=== PATIENT | female | born 1995 | race Caucasian/White ===

== ENCOUNTER 2023-01-03 15:45 | Outpatient (OUT) | payer OTHER, SELFPAY ==
--- NOTE | 2023-01-03 15:51 | US_ITS ---
[address] [address] Patient Name: TATIANA DOMINIQUE MRN: [id number] date: 1995 Sex: F Assigned Patient Location: US Current Patient Location: Accession/Order Number: [id number] Exam Date: 01/03/2023 15:52 Report Date: 01/04/2023 17:46 At the request of: ADRIA GUERRA Procedure: US OB transvaginal EXAMINATION: US OB transvaginal HISTORY: Amenorrhea N91.2 COMPARISON: No relevant comparison available. FINDINGS: [place] intrauterine gestation Gestational sac: 3.0 cm, 7 weeks 6 days CRL: 1.4 cm, 7 weeks 5 days Yolk sac: 2.3 mm Heart rate: 156 bpm The uterus is normal, anteverted The right ovary is normal measuring 3.3 x 1.1 x 1.8 cm The left ovary measures 5.2 x 3.8 x 3.2 cm. Areas of anechoic echogenicity measuring up to 2.4 cm, simple cyst / corpus luteal cyst The cervix is closed measuring 3 cm Clinical age: 8 weeks 5 days Clinical ANTOINETTE: 08/10/2023 Ultrasound age: 7 weeks 6 days Ultrasound ANTOINETTE: 08/16/2023 US/US OB transvaginal IMPRESSION: Viable [place] intrauterine gestation measuring 7 weeks 6 days Electronically authenticated by: MENDOZA EWING Date: 01/04/2023 17:46
== END 2023-01-03 15:46 | disposition home or self-care (01) ==
LOC: US 15:45
PROVIDERS: Family Provider Obstetrics & Gynecology; PCP Family Medicine; Visit Provider Midwife
DX: N91.2 Amenorrhea, unspecified (principal); Z3A.01 Less than 8 weeks gestation of pregnancy
CPT/HCPCS: 76817

== ENCOUNTER 2023-07-02 07:19 | Outpatient (OUT) | payer OTHER, SELFPAY ==
--- OUTSIDE RECORDS SUMMARY | 2023-07-02 07:23 | XMS_ITS | CCD ---
Author Organization [facility] Care Team Providers Care [employer] Associate Name Role Phone MELISSA STEVENS Unavailable Unavailable HILDA, MELISSA Unavailable Unavailable DEXTER SMITH Unavailable Unavailable HILDA, MELISSA Unavailable Unavailable FLORO, ADRIA Admitting Unavailable FLORO, ADRIA Attending Unavailable DEFRANCEMENDOZA Primary Care Unavailable FLORO, ADRIA L Attending Unavailable FLORO, ADRIA L Attending Unavailable FLORO, ADRIA L Referring Unavailable FLORO, ADRIA L Attending Unavailable FLORO, ADRIA L Attending Unavailable FLORO, ADRIA L Referring Unavailable FLORO, ADRIA L Attending Unavailable FLORO, ADRIA L Attending Unavailable FLORO, ADRIA L Referring Unavailable FLORO, ADRIA L Attending Unavailable FLORO, ADRIA L Referring Unavailable FLORO, ADRIA L Attending Unavailable FLORO, ADRIA L Referring Unavailable Problems Problem Classification Problem Date Documented Da te Episodic/Chronic Abdominal pain (4 sources) Pelvic and perineal pain; Translations: [PELVIC AND PERINEAL PAIN] Onset: 11-13-2017 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 The placenta is posterior Grade 1. Cervix closed 4.0 cm. IDALIA 14 cm. Heart rate 136. IMPRESSION: 10/10 normal biophysical profile. TRANSCRIBED BY: ELECTRONICALLY SIGNED BY: Moisés Grenewood MD Normal Not Available US BIOPHYSICAL PROFILE WO NON STRESS TESTINGon 06-21-2023 US BIOPHYSICAL PROFILE WO NON STRESS TESTING FINDINGS: Breathing Movements 2 Gross Body Movements 2 Tone 2 Qualitative amniotic fluid volume 2 A single, viable intrauterine is present. IDALIA 14 cm. Heart rate 145 bpm. Cephalic presentation. The placenta is posterior, not associated with the cervical os. Cervix is closed, 5.4 cm length IMPRESSION: Normal biophysical profile. TRANSCRIBED BY: ELECTRONICALLY SIGNED BY: Moisés Greenwood MD Normal Not Available US OB FOLLOW UP TRANSABDOMIN AL APPROACHon 06-07-2023 US OB FOLLOW UP TRANSABDOMINAL APPROACH HISTORY: Growth. Age by LMP of 30 weeks 6 days COMPARISON: 05/07/2023. TECHNIQUE: Sonography of the pelvis was performed by transabdominal technique. Images were obtained and stored in a permanent archive. RESULT: Gestation: Single present. Position: Cephalic Placenta: Location: Posterior Grade: 1 Previa: absent Cervix: Closed measuring 3.6 cm in length. Cardiac activity: 145 bpm BPD: 7.7 cm HC: 28.1 cm AC: 26.6 cm FL: 5.9 cm Amniotic fluid: 15.9 cc, 60th percentile Estimated weight (EFW): 1625 g, 33rd percentile Estimated gestational age: 30 weeks 5 days estimated gestational age by composite. Anatomy: No gross anomalies in the visualized anatomy. IMPRESSION: Single, live intrauterine with estimated 30 weeks 5 days gestational age. Appropriate interval growth. ELECTRONICALLY SIGNED BY: Rory Nj MD Normal Not Available US OB LIMITED 1+ FETUSESon 0 05-07-2023 US OB LIMITED 1+ FETUSES HISTORY: Lower pelvic pain. Age by LMP of 26 weeks 3 days COMPARISON: 03/28/2023 TECHNIQUE: Sonography of the pelvis was performed by transabdominal technique. Images were obtained and stored in a permanent archive. RESULT: Gestation: Single present. Position: Breech Placenta: Location: Posterior Grade: 0 Previa: absent Cervix: Closed measuring 5.9 cm in length. Cardiac activity: 163 bpm BPD: 6.5 cm HC: 24 cm AC: 21.9 cm FL: 4.8 cm Amniotic fluid: 14 mL, 41st percentile Estimated weight (EFW): 899 g, 28th percentile Estimated gestational age: 26 weeks 1 day estimated gestational age by composite. Anatomy: No gross anomalies in the visualized anatomy. IMPRESSION: Single, live intrauterine with estimated 26 weeks 1 day gestational age. Appropriate interval growth. ELECTRONICALLY SIGNED BY: Rroy Nj MD Normal Not Available US OB DETAIL ANATOMYon 03-28-2023 US OB DETAIL ANATOMY HISTORY: Anatomy scan. COMPARISON: None for this gestation TECHNIQUE: Sonography of the pelvis was performed by transabdominal technique. Images were obtained and stored in a permanent archive. RESULT: Gestation: Single present. Position: Cephalic Placenta: Location: Posterior Grade: 0 Previa: absent Cervix: Closed measuring 3.6 cm in length. Cardiac activity: 147 bpm BPD: 4.8 cm HC: 18.2 cm AC: 15.5 cm FL: 3.4 cm Amniotic fluid: 13.7 cm, 42.5 percentile Estimated weight (EFW): 367 g (0 pounds 13 ounces), 40.1 percentile Estimated gestational age: 20 weeks 4 days estimated gestational age by composite. Anatomy: Normal appearance of the visualized lateral ventricles, cerebellum, cisterna magna, orbits, four-chamber heart, stomach, kidneys, cord insertion, three-vessel cord, bladder, long bones, diaphragm, spine, somatic movement. RVOT and LVOT not well visualized. IMPRESSION: Single, live intrauterine with estimated 20 weeks 4 days gestational age. No gross anomalies in the visualized anatomy. ELECTRONICALLY SIGNED BY: Rory Nj MD Normal Not Available HCG,Urineon 07-19-2020 Beta HCG ( test) Ql (U) Negative Normal [facility] Comment on above: Result Comment: PERF ORMED BY: [place] [address] PATHOLOGIST POLLUTION CONTROL TECHNICIAN [address] M.D. Performed By: #### C BC, ESR, OB(GUAIAC), CMP, HEPATIC #### [facility] [address] [place] [address] #### CALPROTECT, ELASTASE STOOL, BOWEL CASC #### [facility] , [place] 07-19-2020 L ---- Specimen: [id number] Received: 07/19/20 Status: SAIDA Galloway Num: [id number] Spec Type: Surgical Subm Dr: Terrence Francois MD Tissues: A Colon Biopsy (RANDOM COLON BX) B Colon - Polyp (SIGMOID COLON POLYP) Procedures: HE Stain/4, Gross/Micro L4/2 Patient Age/Sex Location Account Attending Physician Tatiana Uribe 24/F [id number] Terrence Francois MD SPEC NUM: [id number] RECD: 07/19/20 STATUS: SAIDA GALLOWAY NUM: [id number] JOSEPH: 07/19/20 [facility] DR: Terrence Francois MD ENTERED: 07/19/[address]: SPEC TYPE: Surgical DEPT: S ORDERED: HE Stain/4, Gross/Micro L4/2 ORDERED: HE Stain/4, Gross/Micro L4/2 Pathological Diagnosis A. Colon, random biopsy: - Colonic mucosa showing no specific pathologic changes - Small lymphoid aggregates - Negative for microscopic colitis B. Sigmoid colon, biopsy: - Tubular adenoma Clinical Information Diarrhea Gross Description A. Received in formalin labeled with the patient's name, number and random colon biopsy rule out microscopic colitis are multiple bill tissue fragments aggregating 0.7 x 0.6 x 0.1 cm. Entirely submitted in one cassette labeled A1. (LEATHA) B. Received in formalin labeled with the patient's name, number and sigmoid colon polyp is a 0.5 cm bill, sessile mucosal polyp. The resection margin is inked blue and the fragment is bisected. Entirely submitted in one cassette labeled B1. (LEATHA) Specimen: [id number] Received: 07/19/20 Status: SAIDA Laverne Num: [id number] Spec Type: Surgical Subm Dr: Terrence Francois MD Tissues: A Colon Biopsy (RANDOM COLON BX) B Colon - Polyp (SIGMOID COLON POLYP) Procedures: HE Stain/4, Gross/Micro L4/2 Patient: Tatiana Uribe [id number] (Continued) Specimen: [id number] Received: 07/19/20 (Continued) Signed (signature on file) Kirby Street MD 07/20/20 1552 Specimen: [id number] Received: 07/19/20 Status: SAIDA Galloway Num: [id number] Spec Type: Surgical Subm Dr: Terrence Francois MD Tissues: A Colon Biopsy (RANDOM COLON BX) B Colon - Polyp (SIGMOID COLON POLYP) Procedures: HE Stain/4, Gross/Micro L4/2 Patient: Tatiana Uribe [id number] (Continued) Specimen: [id number] Received: 07/19/20 (Continued) Microscopic Description A. Two glass slides with H E stained material have been examined. The microscopic findings support the above pathologic diagnosis. B. Two glass slides with H E stained material have been examined. The microscopic findings support the above pathologic diagnosis. [id number] Specimen: [id number] Received: 07/19/20 Status: SAIDA Galloway Num: [id number] Spec Type: Surgical Subm Dr: Terrence Francois MD Tissues: A Colon Biopsy (RANDOM COLON BX) B Colon - Polyp (SIGMOID COLON POLYP) Procedures: HE Stain/4, Gross/Micro L4/2 Patient: Tatiana Uribe [id number] (Continued) Signed (signature on file) Kirby Street MD 07/20/20 1552 [facility] COVID-19 Antigenon 1 COVID-19 Antigen Healthcare Worker?: N Judah Reference Judah Reference Negative SARS-CoV+SARS-CoV-2 (COVID-19) Ag [Presence] in Respiratory specimen by Rapid immunoassay Negative for SARS Antigen by RUSTY COVID19 Blank Space ------ Judah Disclaimer Negative results, from patients with symptom Judah Disclaimer onset beyond five days, should be treated as Judah Disclaimer presumptive and confirmation with a molecular Judah Disclaimer assay, if necessary, for patient management, Judah Disclaimer may be performed. Negative results do not rule Judah Disclaimer out COVID-19 and should not be used as the sole Judah Disclaimer basis for treatment or patient management Judah Disclaimer decisions, including infection control decisions. Judah Disclaimer Negative results should be considered in the Judah Disclaimer context of a patient's recent exposures, history Judah Disclaimer and the presence of clinical signs and symptoms Judah Disclaimer consistent with COVID-19. COVID19 Blank Space ------ Judah Disclaimer The Judah SARS Antigen RUSTY does not differentiate Judah Disclaimer between SARS-CoV and SARS-CoV-2. COVID19 Blank Space ------ Judah Disclaimer This test was developed and its performance Judah Disclaimer characteristic determined by [facility] and Judah Disclaimer validated at [facility]. This Judah Disclaimer test has not been FDA cleared or approved. This Judah Disclaimer test has been authorized by FDA under an Emergency Use Judah Disclaimer Authorization (EUA). This test has been validated Judah Disclaimer in accordance with the FDA's Guidance Document (Policy Judah Disclaimer for Diagnostics Testing in Laboratories Certified to Judah Disclaimer Perform High Complexity Testing under CLIA prior to Judah Disclaimer Emergency Use Authorization for Coronavirus Judah Disclaimer iseas during the Public Health Emergency) Judah Disclaimer issued on June 05, 2019. This test is only authorized Judah Disclaimer for the duration of time the declaration that Judah Disclaimer circumstances exist justifying the authorization of Judah Disclaimer the emergency use of in vitro diagnostic tests for Judah Disclaimer detection of SARS-CoV-2 virus and/or diagnosis of Judah Disclaimer COVID-19 infection under section 564(b)(1) of the Judah Disclaimer Act, 21 U.S.C. 360bbb-3(b)(1), unless the Judah Disclaimer authorization is terminated or revoked sooner. PERFORMED BY: [place] [address] PATHOLOGIST POLLUTION CONTROL TECHNICIAN [address] M.D. [facility] Comment on above: Performed By: #### C OVID-19 JUDAH, SOFIANEG #### [facility] [address] [place] [address] Judah Ag Negativeon 07-16-19 21 Judah Ag Negative Negative Normal Negative [facility] Comment on above: Result Comment: This is a duplicate Judah SARS Antigen (RUSTY) result to be used for statistical tracking purpose only. PERFORMED BY: [place] [address] PATHOLOGIST POLLUTION CONTROL TECHNICIAN [address] M.D. Performed By: #### C OVID-19 JUDAH, SOFIANEG #### [facility] [address] [place], [place] [id number] [facility] Bowel Disorders Cascadeon Antigliadin IgG 3 Normal 0- [facility] Comment on above: Order Comment: Reaso n for Exam Diarrhea;GERD (gastroesophageal reflux disease);Elevated LFT Result Comment: Nega tive 0 - 19 Weak Positive 20 - 30 Moderate to Strong Positive >30 Performed By: #### C BC, ESR, OB(GUAIAC), CMP, HEPATIC #### [address] #### CALPROTECT, ELASTASE STOOL, BOWEL CASC #### [facility] , Atypical pANCA Negative Normal Negative [facility] Comment on above: Order Comment: Reaso n for Exam Diarrhea;GERD (gastroesophageal reflux disease);Elevated LFT Performed By: #### C BC, ESR, OB(GUAIAC), CMP, HEPATIC #### [address] #### CALPROTECT, ELASTASE STOOL, BOWEL CASC #### [facility] , Bowel Disorders [place] Negative Normal Negative [facility] Comment on above: Order Comment: Reaso n for Exam Diarrhea;GERD (gastroesophageal reflux disease);Elevated LFT Performed By: #### C BC, ESR, OB(GUAIAC), CMP, HEPATIC #### [place] [address] [place] #### CALPROTECT, ELASTASE STOOL, BOWEL CASC #### [facility] , Note [place] continues Normal . [facility] Comment on above: Order Comment: Reaso n for Exam Diarrhea;GERD (gastroesophageal reflux disease);Elevated LFT Performed By: #### C BC, ESR, OB(GUAIAC), CMP, HEPATIC #### [place] [address] [place] #### CALPROTECT, ELASTASE STOOL, BOWEL CASC #### [facility] , Note Normal . [facility] Comment on above: Order Comment: Reaso n for Exam Diarrhea;GERD (gastroesophageal reflux disease);Elevated LFT Result Comment: Sugg estive of irritable bowel syndrome (IBS). Careful evaluation of the patient's history, physical examination, and application of Marciano III diagnostic criteria may help to rule in or rule out the diagnosis of IBS. Subsequent testing for Fecal Calprotectin (637559) may be recommended. If IBD is strongly suspected, subsequent testing with the Crohn's Disease Prognostic Profile (205256) that includes anti-glycan antibodies AMCA, ALCA, ACCA, and Simone may aid in differential diagnosis. Performed at: - [facility] [address] [id number] Rfid Strategist: Dennis Dooley MD, Phone: [phone] PERFORMED BY: [place] [address] PATHOLOGIST POLLUTION CONTROL TECHNICIAN [address] M.D. Performed By: #### C BC, ESR, OB(GUAIAC), CMP, HEPATIC #### [address] #### CALPROTECT, ELASTASE STOOL, BOWEL CASC #### [facility] , Saccharomyces cerevisiae, IgG <20.0 Normal 0.0-24.9 [facility] Comment on above: Order Comment: Reaso n for Exam Diarrhea;GERD (gastroesophageal reflux disease);Elevated LFT Result Comment: Nega tive <20.0 Equivocal 20.1 - 24.9 Positive >or= 25.0 Performed By: #### C BC, ESR, OB(GUAIAC), CMP, HEPATIC #### [address] #### CALPROTECT, ELASTASE STOOL, BOWEL CASC #### [facility] , Calprotectin, Fecalon 2020 Calprotectin, Fecal 29 Normal 0-120 [facility] Comment on above: Order Comment: Reaso n for Exam Diarrhea;Fecal incontinence Result Comment: Conc entration Interpretation Follow-Up <16 - 50 ug/g Normal None >50 -120 ug/g Borderline Re-evaluate in 4-6 weeks >120 ug/g Abnormal Repeat as clinically indicated Performed at: - [facility] [address] [id number] Rfid Strategist: Dennis Dooley MD, Phone: [phone] PERFORMED BY: [place] [address] PATHOLOGIST POLLUTION CONTROL TECHNICIAN [address] M.D. Performed By: #### C BC, ESR, OB(GUAIAC), CMP, HEPATIC #### [address] #### CALPROTECT, ELASTASE STOOL, BOWEL CASC #### [facility] , Complete Blood Count Auto Di ffon 06-25-2020 Basophils (Bld) [#/Vol] 0.0 10*3/uL Normal 0.0-0.2 [facility] Comment on above: Order Comment: Reaso n for Exam Diarrhea;GERD (gastroesophageal reflux disease);Elevated LFT Performed By: #### C BC, ESR, OB(GUAIAC), CMP, HEPATIC #### [address] #### CALPROTECT, ELASTASE STOOL, BOWEL CASC #### [facility] , Basophils/100 WBC (Bld) 0.3 % Normal . [facility] Comment on above: Order Comment: Reaso n for Exam Diarrhea;GERD (gastroesophageal reflux disease);Elevated LFT Performed By: #### C BC, ESR, OB(GUAIAC), CMP, HEPATIC #### [address] #### CALPROTECT, ELASTASE STOOL, BOWEL CASC #### [facility] , Eosinophils (Bld) [#/Vol] 0.0 10*3/uL Normal 0.0-0.45 [facility] Comment on above: Order Comment: Reaso n for Exam Diarrhea;GERD (gastroesophageal reflux disease);Elevated LFT Performed By: #### C BC, ESR, OB(GUAIAC), CMP, HEPATIC #### [address] #### CALPROTECT, ELASTASE STOOL, BOWEL CASC #### [facility] , Eosinophils/100 WBC (Bld) 0.4 % Normal . [facility] Comment on above: Order Comment: Reaso n for Exam Diarrhea;GERD (gastroesophageal reflux disease);Elevated LFT Performed By: #### C BC, ESR, OB(GUAIAC), CMP, HEPATIC #### [address] #### CALPROTECT, ELASTASE STOOL, BOWEL CASC #### [facility] , Erythrocyte distribution width (RBC) [Ratio] 12.8 % Normal 11.9-15.3 [facility] Comment on above: Order Comment: Reaso n for Exam Diarrhea;GERD (gastroesophageal reflux disease);Elevated LFT Performed By: #### C BC, ESR, OB(GUAIAC), CMP, HEPATIC #### [address] #### CALPROTECT, ELASTASE STOOL, BOWEL CASC #### [facility] , Hematocrit (Bld) [Volume fraction] 39.3 % Normal 34.0-46.4 [facility] Comment on above: Order Comment: Reaso n for Exam Diarrhea;GERD (gastroesophageal reflux disease);Elevated LFT Performed By: #### C BC, ESR, OB(GUAIAC), CMP, HEPATIC #### [address] #### CALPROTECT, ELASTASE STOOL, BOWEL CASC #### [facility] , Hemoglobin (Bld) [Mass/Vol] 13.6 g/dL Normal 11.8-15.4 [facility] Comment on above: Order Comment: Reaso n for Exam Diarrhea;GERD (gastroesophageal reflux disease);Elevated LFT Performed By: #### C BC, ESR, OB(GUAIAC), CMP, HEPATIC #### [place] [address] [place] #### CALPROTECT, ELASTASE STOOL, BOWEL CASC #### [facility] , Lymphocytes (Bld) [#/Vol] 1.4 10*3/uL Normal 1.00-4.8 [facility] Comment on above: Order Comment: Reaso n for Exam Diarrhea;GERD (gastroesophageal reflux disease);Elevated LFT Performed By: #### C BC, ESR, OB(GUAIAC), CMP, HEPATIC #### [address] #### CALPROTECT, ELASTASE STOOL, BOWEL CASC #### [facility] , Lymphocytes/100 WBC (Bld) 27.3 % Normal . [facility] Comment on above: Order Comment: Reaso n for Exam Diarrhea;GERD (gastroesophageal reflux disease);Elevated LFT Performed By: #### C BC, ESR, OB(GUAIAC), CMP, HEPATIC #### [address] #### CALPROTECT, ELASTASE STOOL, BOWEL CASC #### [facility] , MCH (RBC) [Entitic mass] 30.3 pg Normal 24.7-34.3 [facility] Comment on above: Order Comment: Reaso n for Exam Diarrhea;GERD (gastroesophageal reflux disease);Elevated LFT Performed By: #### C BC, ESR, OB(GUAIAC), CMP, HEPATIC #### [facility] [address] [place] [address] #### CALPROTECT, ELASTASE STOOL, BOWEL CASC #### [facility] , MCV (RBC) [Entitic vol] 87.6 fL Normal 80-100 [facility] Comment on above: Order Comment: Reaso n for Exam Diarrhea;GERD (gastroesophageal reflux disease);Elevated LFT Performed By: #### C BC, ESR, OB(GUAIAC), CMP, HEPATIC #### [address] #### CALPROTECT, ELASTASE STOOL, BOWEL CASC #### [facility] , Mean Corpuscular HGB Conc 34.6 g/dL Normal 32.0-35.0 [facility] Comment on above: Order Comment: Reaso n for Exam Diarrhea;GERD (gastroesophageal reflux disease);Elevated LFT Performed By: #### C BC, ESR, OB(GUAIAC), CMP, HEPATIC #### [address] #### CALPROTECT, ELASTASE STOOL, BOWEL CASC #### [facility] , Monocytes (Bld) [#/Vol] 0.3 10*3/uL Normal 0.0-0.8 [facility] Comment on above: Order Comment: Reaso n for Exam Diarrhea;GERD (gastroesophageal reflux disease);Elevated LFT Performed By: #### C BC, ESR, OB(GUAIAC), CMP, HEPATIC #### [address] #### CALPROTECT, ELASTASE STOOL, BOWEL CASC #### [facility] , Monocytes/100 WBC (Bld) 6.7 % Normal . [facility] Comment on above: Order Comment: Reaso n for Exam Diarrhea;GERD (gastroesophageal reflux disease);Elevated LFT Performed By: #### C BC, ESR, OB(GUAIAC), CMP, HEPATIC #### [address] #### CALPROTECT, ELASTASE STOOL, BOWEL CASC #### [facility] , Neutrophils (Bld) [#/Vol] 3.3 10*3/uL Normal 1.8-7.7 [facility] Comment on above: Order Comment: Reaso n for Exam Diarrhea;GERD (gastroesophageal reflux disease);Elevated LFT Performed By: #### C BC, ESR, OB(GUAIAC), CMP, HEPATIC #### [place] [address] [place] #### CALPROTECT, ELASTASE STOOL, BOWEL CASC #### [facility] , Neutrophils/100 WBC (Bld) 65.3 % Normal . [facility] Comment on above: Order Comment: Reaso n for Exam Diarrhea;GERD (gastroesophageal reflux disease);Elevated LFT Performed By: #### C BC, ESR, OB(GUAIAC), CMP, HEPATIC #### [place] [address] [place] #### CALPROTECT, ELASTASE STOOL, BOWEL CASC #### [facility] , Nucleated RBC/100 WBC (Bld) [Ratio] 0.3 % Normal 0-0.5 [facility] Comment on above: Order Comment: Reaso n for Exam Diarrhea;GERD (gastroesophageal reflux disease);Elevated LFT Performed By: #### C BC, ESR, OB(GUAIAC), CMP, HEPATIC #### [place] [address] [place] #### CALPROTECT, ELASTASE STOOL, BOWEL CASC #### [facility] , Platelet mean volume (Bld) [Entitic vol] 7.8 fL Normal 6.3-10.7 [facility] Comment on above: Order Comment: Reaso n for Exam Diarrhea;GERD (gastroesophageal reflux disease);Elevated LFT Performed By: #### C BC, ESR, OB(GUAIAC), CMP, HEPATIC #### [place] [address] [place] #### CALPROTECT, ELASTASE STOOL, BOWEL CASC #### [facility] , Platelets (Bld) [#/Vol] 232 10*3/uL Normal 150-450 [facility] Comment on above: Order Comment: Reaso n for Exam Diarrhea;GERD (gastroesophageal reflux disease);Elevated LFT Performed By: #### C BC, ESR, OB(GUAIAC), CMP, HEPATIC #### [place] [address] [place] #### CALPROTECT, ELASTASE STOOL, BOWEL CASC #### [facility] , RBC (Bld) [#/Vol] 4.49 10*6/uL Normal 3.60-5.00 [facility] Comment on above: Order Comment: Reaso n for Exam Diarrhea;GERD (gastroesophageal reflux disease);Elevated LFT Performed By: #### C BC, ESR, OB(GUAIAC), CMP, HEPATIC #### [place] [address] [place] #### CALPROTECT, ELASTASE STOOL, BOWEL CASC #### [facility] , WBC (Bld) [#/Vol] 5.0 10*3/uL Normal 4.5-11.0 [facility] Comment on above: Order Comment: Reaso n for Exam Diarrhea;GERD (gastroesophageal reflux disease);Elevated LFT Performed By: #### C BC, ESR, OB(GUAIAC), CMP, HEPATIC #### [place] [address] [place] #### CALPROTECT, ELASTASE STOOL, BOWEL CASC #### [facility] , Comprehensive Metabolic Pane [place] 06-25-2020 Albumin [Mass/Vol] 4.4 g/dL Normal 3.2-5.5 [facility] Comment on above: Order Comment: Reaso n for Exam Diarrhea;GERD (gastroesophageal reflux disease);Elevated LFT Performed By: #### C BC, ESR, OB(GUAIAC), CMP, HEPATIC #### [place] [address] [place] #### CALPROTECT, ELASTASE STOOL, BOWEL CASC #### [facility] , Albumin/Globulin [Mass ratio] 1.5 {ratio} Normal [facility] Comment on above: Order Comment: Reaso n for Exam Diarrhea;GERD (gastroesophageal reflux disease);Elevated LFT Performed By: #### C BC, ESR, OB(GUAIAC), CMP, HEPATIC #### [place] [address] [place] #### CALPROTECT, ELASTASE STOOL, BOWEL CASC #### [facility] , ALP [Catalytic activity/Vol] 89 U/L Normal 32-92 [facility] Comment on above: Order Comment: Reaso n for Exam Diarrhea;GERD (gastroesophageal reflux disease);Elevated LFT Performed By: #### C BC, ESR, OB(GUAIAC), CMP, HEPATIC #### [place] [address] [place] #### CALPROTECT, ELASTASE STOOL, BOWEL CASC #### [facility] , ALT [Catalytic activity/Vol] 20 U/L Normal 10-60 [facility] Comment on above: Order Comment: Reaso n for Exam Diarrhea;GERD (gastroesophageal reflux disease);Elevated LFT Performed By: #### C BC, ESR, OB(GUAIAC), CMP, HEPATIC #### [address] #### CALPROTECT, ELASTASE STOOL, BOWEL CASC #### [facility] , AST [Catalytic activity/Vol] 11 U/L Normal 10-42 [facility] Comment on above: Order Comment: Reaso n for Exam Diarrhea;GERD (gastroesophageal reflux disease);Elevated LFT Performed By: #### C BC, ESR, OB(GUAIAC), CMP, HEPATIC #### [address] #### CALPROTECT, ELASTASE STOOL, BOWEL CASC #### [facility] , Bilirubin [Mass/Vol] 0.8 mg/dL Normal 0.3-1.2 [facility] Comment on above: Order Comment: Reaso n for Exam Diarrhea;GERD (gastroesophageal reflux disease);Elevated LFT Performed By: #### C BC, ESR, OB(GUAIAC), CMP, HEPATIC #### [address] #### CALPROTECT, ELASTASE STOOL, BOWEL CASC #### [facility] , Calcium [Mass/Vol] 9.1 mg/dL Normal 8.2-10.2 [facility] Comment on above: Order Comment: Reaso n for Exam Diarrhea;GERD (gastroesophageal reflux disease);Elevated LFT Performed By: #### C BC, ESR, OB(GUAIAC), CMP, HEPATIC #### [place] [address] [place] #### CALPROTECT, ELASTASE STOOL, BOWEL CASC #### [facility] , Chloride [Moles/Vol] 101 mmol/L Normal 95-114 [facility] Comment on above: Order Comment: Reaso n for Exam Diarrhea;GERD (gastroesophageal reflux disease);Elevated LFT Performed By: #### C BC, ESR, OB(GUAIAC), CMP, HEPATIC #### [facility] [address] [place] [address] [place] #### CALPROTECT, ELASTASE STOOL, BOWEL CASC #### [facility] , CO2 [Moles/Vol] 26.9 mmol/L Normal 22.0-30.0 [facility] Comment on above: Order Comment: Reaso n for Exam Diarrhea;GERD (gastroesophageal reflux disease);Elevated LFT Performed By: #### C BC, ESR, OB(GUAIAC), CMP, HEPATIC #### [address] #### CALPROTECT, ELASTASE STOOL, BOWEL CASC #### [facility] , Creatinine [Mass/Vol] 0.59 mg/dL Normal 0.44-1.03 [facility] Comment on above: Order Comment: Reaso n for Exam Diarrhea;GERD (gastroesophageal reflux disease);Elevated LFT Performed By: #### C BC, ESR, OB(GUAIAC), CMP, HEPATIC #### [facility] [address] [place] [address] [place] #### CALPROTECT, ELASTASE STOOL, BOWEL CASC #### [facility] , Estimated GFR ( Melly > 60 Normal [facility] Comment on above: Order Comment: Reaso n for Exam Diarrhea;GERD (gastroesophageal reflux disease);Elevated LFT Result Comment: GFR estimated reference range: According to KDOQI guidelines, <60 ml/min/1.73m2 is sufficient to diagnose a patient with chronic kidney disease. Performed By: #### C BC, ESR, OB(GUAIAC), CMP, HEPATIC #### [place] [address] [place] #### CALPROTECT, ELASTASE STOOL, BOWEL CASC #### [facility] , Estimated GFR (Non- Am > 60 Normal [facility] Comment on above: Order Comment: Reaso n for Exam Diarrhea;GERD (gastroesophageal reflux disease);Elevated LFT Performed By: #### C BC, ESR, OB(GUAIAC), CMP, HEPATIC #### [facility] [address] [place] [address] #### CALPROTECT, ELASTASE STOOL, BOWEL CASC #### [facility] , Globulin (S) [Mass/Vol] 2.9 g/dL Normal [facility] Comment on above: Order Comment: Reaso n for Exam Diarrhea;GERD (gastroesophageal reflux disease);Elevated LFT Performed By: #### C BC, ESR, OB(GUAIAC), CMP, HEPATIC #### [address] #### CALPROTECT, ELASTASE STOOL, BOWEL CASC #### [facility] , Glucose [Mass/Vol] 90 mg/dL Normal 70-100 [facility] Comment on above: Order Comment: Reaso n for Exam Diarrhea;GERD (gastroesophageal reflux disease);Elevated LFT Result Comment: [facility] Glucose Reference Range is dependent on time and content of last meal. Glucose of more than 200 mg/dL in a nonstressed, ambulatory subject supports the diagnosis of Diabetes Mellitus. ADA recommended reference range Performed By: #### C BC, ESR, OB(GUAIAC), CMP, HEPATIC #### [address] #### CALPROTECT, ELASTASE STOOL, BOWEL CASC #### [facility] , Potassium [Moles/Vol] 4.1 mmol/L Normal 3.5-5.1 [facility] Comment on above: Order Comment: Reaso n for Exam Diarrhea;GERD (gastroesophageal reflux disease);Elevated LFT Performed By: #### C BC, ESR, OB(GUAIAC), CMP, HEPATIC #### [address] #### CALPROTECT, ELASTASE STOOL, BOWEL CASC #### [facility] , Protein [Mass/Vol] 7.3 g/dL Normal 6.1-7.9 [facility] Comment on above: Order Comment: Reaso n for Exam Diarrhea;GERD (gastroesophageal reflux disease);Elevated LFT Performed By: #### C BC, ESR, OB(GUAIAC), CMP, HEPATIC #### [address] #### CALPROTECT, ELASTASE STOOL, BOWEL CASC #### [facility] , Sodium [Moles/Vol] 137 mmol/L Normal 136-146 [facility] Comment on above: Order Comment: Reaso n for Exam Diarrhea;GERD (gastroesophageal reflux disease);Elevated LFT Performed By: #### C BC, ESR, OB(GUAIAC), CMP, HEPATIC #### [address] #### CALPROTECT, ELASTASE STOOL, BOWEL CASC #### [facility] , Urea nitrogen [Mass/Vol] 12 mg/dL Normal 9-23 [facility] Comment on above: Order Comment: Reaso n for Exam Diarrhea;GERD (gastroesophageal reflux disease);Elevated LFT Performed By: #### C BC, ESR, OB(GUAIAC), CMP, HEPATIC #### [address] #### CALPROTECT, ELASTASE STOOL, BOWEL CASC #### [facility] , Erythrocyte Sedimentation Ra grisel 06-25-2020 ESR (Bld) [Velocity] 13 mm/h Normal 0-19 [facility] Comment on above: Order Comment: Reaso n for Exam Diarrhea;GERD (gastroesophageal reflux disease);Elevated LFT Result Comment: PERF ORMED BY: [place] [address] PATHOLOGIST POLLUTION CONTROL TECHNICIAN [address] M.D. Performed By: #### C BC, ESR, OB(GUAIAC), CMP, HEPATIC #### [address] #### CALPROTECT, ELASTASE STOOL, BOWEL CASC #### [facility] , Hepatic Panelon 06-25-2020 Bilirubin,Indirect 0.7 mg/dL Normal [facility] Comment on above: Order Comment: Reaso n for Exam Diarrhea;GERD (gastroesophageal reflux disease);Elevated LFT Result Comment: PERF ORMED BY: [place] [address] PATHOLOGIST POLLUTION CONTROL TECHNICIAN [address] M.D. Performed By: #### C BC, ESR, OB(GUAIAC), CMP, HEPATIC #### [facility] [address] [place] [address] #### CALPROTECT, ELASTASE STOOL, BOWEL CASC #### [facility] , Bilirubin.indirect [Mass/Vol] 0.1 mg/dL Normal 0.0-0.4 [facility] Comment on above: Order Comment: Reaso n for Exam Diarrhea;GERD (gastroesophageal reflux disease);Elevated LFT Performed By: #### C BC, ESR, OB(GUAIAC), CMP, HEPATIC #### [address] #### CALPROTECT, ELASTASE STOOL, BOWEL CASC #### [facility] , Pancreatic Elastase, Stoolon 06-25-2020 Pancreatic Elastase, Stool 470 Normal >200 [facility] Comment on above: Order Comment: Reaso n for Exam Diarrhea;Fecal incontinence Result Comment: Resu lt Units: ug Elast./g Severe Pancreatic Insufficiency: <100 Moderate Pancreatic Insufficiency: 100 - 200 Normal: >200 Performed at: [facility] [address] [id number] Rfid Strategist: Dennis Dooley MD, Phone: [phone] Performed By: #### C BC, ESR, OB(GUAIAC), CMP, HEPATIC #### [facility] [address] [place] [address] [place] #### CALPROTECT, ELASTASE STOOL, BOWEL CASC #### [facility] , Stool Occult Blood (Guaiac)o n 06-25-2020 Stool Occult Blood (Guaiac) Reason for Exam Diarrhea;Fecal incontinence Stool Reason for Exam: Diarrhea;Fecal incontinence : Stool Occult Blood Negative for Occult Blood by Guaiac Methodology Reference range = Negative Reason for Exam Diarrhea;Fecal incontinence Stool Reason for Exam: Diarrhea;Fecal incontinence : Stool LACTOFERRIN Negative for Fecal Lactoferrin Immune suppression may cause reduced WBC counts, leading to a false negative result. Reference range = Negative PERFORMED BY: [place] [address] PATHOLOGIST POLLUTION CONTROL TECHNICIAN [address] M.D. [facility] Comment on above: Performed By: #### C BC, ESR, OB(GUAIAC), CMP, HEPATIC #### [facility] [address] #### CALPROTECT, ELASTASE STOOL, BOWEL CASC #### [facility] , CBCon 02-14-2019 Erythrocyte distribution width (RBC) [Ratio] 12.7 % Normal 11.8-14.4 [facility] Comment on above: Performed By: #### C BC #### [facility] [address] [place] [id number] Rfid Strategist: Len Grissom MD Hematocrit (Bld) [Volume fraction] 29.6 % Low 36.3-47.1 [facility] Comment on above: Performed By: #### C BC #### [facility] [address] [place] [address] Rfid Strategist: Len Grissom MD Hemoglobin (Bld) [Mass/Vol] 9.6 g/dL Low 11.9-15.1 [facility] Comment on above: Performed By: #### C BC #### [facility] [address] [place], [place] [id number] Rfid Strategist: Len Grissom MD MCH (RBC) [Entitic mass] 29.9 pg Normal 25.2-33.5 [facility] Comment on above: Performed By: #### C BC #### [facility] [address] [place] [id number] Rfid Strategist: Len Grissom MD MCHC (RBC) [Mass/Vol] 32.4 g/dL Normal 28.4-34.8 [facility] Comment on above: Performed By: #### C BC #### [facility] [address] [place] [address] Rfid Strategist: Len Grissom MD MCV (RBC) [Entitic vol] 92.2 fL Normal 82.6-102.9 [facility] Comment on above: Performed By: #### C BC #### [facility] [address] [place] [id number] Rfid Strategist: Len Grissom MD NRBC Automated 0.0 per 100 WBC Normal 0.0 [facility] Comment on above: Performed By: #### C BC #### [facility] [address] [place] [id number] Rfid Strategist: Len Grissom MD Platelet mean volume (Bld) [Entitic vol] 9.9 fL Normal 8.1-13.5 [facility] Comment on above: Performed By: #### C BC #### [facility] [address] [place] [id number] Rfid Strategist: Len Grissom MD Platelets (Bld) [#/Vol] 181 10*3/uL Normal 138-453 [facility] Comment on above: Performed By: #### C BC #### [facility] [address] [place] [address] Rfid Strategist: Len Grissom MD RBC (Bld) [#/Vol] 3.21 10*6/uL Low 3.95-5.11 [facility] Comment on above: Performed By: #### C BC #### [facility] [address] [place], [place] [id number] Rfid Strategist: Len Grissom MD WBC (Bld) [#/Vol] 10.6 10*3/uL Normal 3.5-11.3 [facility] Comment on above: Performed By: #### C BC #### [facility] [address] [place] [address] Rfid Strategist: Len Grissom MD Surgical Pathologyon 019 Surgical Pathology (NOTE) [id number] [facility] [employer] CONSULTING PATHOLOGISTS [facility] ANATOMIC PATHOLOGY [address] [place] [phone] SURGICAL PATHOLOGY CONSULTATION Patient Name: TATIANA URIBE [facility] Rec: [id number] Path Number: [id number] Collected: 02/13/2019 Received: 02/14/2019 Reported: 02/17/2019 11:51 -- Diagnosis -- PLACENTA, CORD AND MEMBRANES, DELIVERY: - SINGLE UMBILICAL ARTERY. - FOCAL INTERVILLOUS THROMBUS. - MATURE THIRD TRIMESTER PLACENTA. - NEGATIVE FOR SIGNIFICANT ACUTE INFLAMMATION OR NEOPLASM. Nir Monahan M.D. Electronically Signed Out 02/17/2019 Clinical Information Operative Findings: PLACENTA Source of Specimen 1: PLACENTA Gross Description TATIANA URIBE, PLACENTA Placenta with attached membranes and umbilical cord. UMBILICAL CORD Length: 26 cm Diameter: 1.6 cm. True knots: No Number of vessels: 2 Spiraling: Normal Insertion into surface: Paracentral MEMBRANES Color: Ritchie-bill, focally opacified Meconium staining: No SURFACE Color: Purple-ritchie, with a normal array of surface vessels Subchorionic fibrin: No subchorionic fibrin noted MATERNAL SURFACE Cotyledons: -All present and intact: Yes -Focal lesions: A 0.8 x 0.8 x 0.8 cm. pink bill parenchymal discoloration involving at least 2% of the entire placental volume Placental size: 17.5 x 14 x 2.5 cm. Shape: Ovoid Weight: 390 grams Number of cassettes: 4cs, the parenchyma discoloration in cassette C dw Microscopic Description Umbilical cord: Single umbilical artery Membranes: Unremarkable Meconium staining: No Infarcts: No Intervillous thrombi: Yes Subchorionic fibrin: Not significantly increased Villous maturation: Appropriate Nucleated erythrocytes in villous capillaries: Not increased Other: Few microcalcifications Normal [facility] Comment on above: Performed By: #### P PPVS #### [place] [id number] [place], [place] [id number] Rfid Strategist: Gary Rivera MD CBC with Diffon 02-12-2019 Abs. Basophil <0.03 Normal 0.00-0.20 [facility] Comment on above: Performed By: #### C DP #### [facility] [address] [place] [address] Dr. [place] [id number] Rfid Strategist: Len Grissom MD Abs.Imm.Granulocyte 0.10 k/uL Normal 0.00-0.30 [facility] Comment on above: Performed By: #### C DP #### [address] [place] [phone] Rfid Strategist: Len Grissom MD Abs.Neutrophil (Seg) 6.26 k/uL Normal 1.50-8.10 [facility] Comment on above: Performed By: #### C DP #### [address] [place] [address] Rfid Strategist: Len Grissom MD Basophils/100 WBC (Bld) 0 % Normal 0-2 [facility] Comment on above: Performed By: #### C DP #### [facility] [address] [place] [id number] Rfid Strategist: Len Grissom MD Eosinophils (Bld) [#/Vol] 10*3/uL Normal 0.00-0.44 [facility] Comment on above: Performed By: #### C DP #### [facility] [address] [place] [address] Dr. [place], [facility]83 Rfid Strategist: Len Grissom MD Eosinophils/100 WBC (Bld) 0 % Low 1-4 [facility] Comment on above: Performed By: #### C DP #### [facility] [address] [place], [place] [id number] Rfid Strategist: Len Grissom MD Erythrocyte distribution width (RBC) [Ratio] 12.8 % Normal 11.8-14.4 [facility] Comment on above: Performed By: #### C DP #### [facility] [address] [place] [facility]83 Rfid Strategist: Len Grissom MD Hematocrit (Bld) [Volume fraction] 38.8 % Normal 36.3-47.1 [facility] Comment on above: Performed By: #### C DP #### [facility] [address] [place], [facility]83 Rfid Strategist: Len Grissom MD Hemoglobin (Bld) [Mass/Vol] 12.5 g/dL Normal 11.9-15.1 [facility] Comment on above: Performed By: #### C DP #### [facility] [address] [place], [facility]83 Rfid Strategist: Len Grissom MD Immature granulocytes (Bld) [#/Vol] 1 % High 0 [facility] Comment on above: Performed By: #### C DP #### [facility] [address] [place], [facility]83 Rfid Strategist: Len Grissom MD Lymphocytes (Bld) [#/Vol] 1.18 10*3/uL Normal 1.10-3.70 [facility] Comment on above: Performed By: #### C DP #### [facility] [address] [place] [facility]83 Rfid Strategist: Len Grissom MD Lymphocytes/100 WBC (Bld) 15 % Low 24-43 [facility] Comment on above: Performed By: #### C DP #### [facility] [address] [place], [facility]83 Rfid Strategist: Len Grissom MD MCH (RBC) [Entitic mass] 29.6 pg Normal 25.2-33.5 [facility] Comment on above: Performed By: #### C DP #### [facility] [address] [place], [facility]83 Rfid Strategist: Len Grissom MD MCHC (RBC) [Mass/Vol] 32.2 g/dL Normal 28.4-34.8 [facility] Comment on above: Performed By: #### C DP #### [facility] [address] [place] [id number] Rfid Strategist: Len Grissom MD MCV (RBC) [Entitic vol] 91.9 fL Normal 82.6-102.9 [facility] Comment on above: Performed By: #### C DP #### [facility] [address] [place] [id number] Rfid Strategist: Len Grissom MD Monocytes (Bld) [#/Vol] 0.56 10*3/uL Normal 0.10-1.20 [facility] Comment on above: Performed By: #### C DP #### [facility] [address] [place] [address] Rfid Strategist: Len Grissom MD Monocytes/100 WBC (Bld) 7 % Normal 3-12 [facility] Comment on above: Performed By: #### C DP #### [facility] [address] [place] [id number] Rfid Strategist: Len Grissom MD Neutrophil (Seg) 77 % High 36-65 [facility] Comment on above: Performed By: #### C DP #### [facility] [address] [place] [id number] Rfid Strategist: Len Grissom MD NRBC Automated 0.0 per 100 WBC Normal 0.0 [facility] Comment on above: Performed By: #### C DP #### [facility] [address] [place] [address] Rfid Strategist: Len Grissom MD Platelet mean volume (Bld) [Entitic vol] 10.1 fL Normal 8.1-13.5 [facility] Comment on above: Performed By: #### C DP #### [facility] [address] [place] [address] Rfid Strategist: Len Grissom MD Platelets (Bld) [#/Vol] 186 10*3/uL Normal 138-453 [facility] Comment on above: Performed By: #### C DP #### [address] [place] [address] Rfid Strategist: Len Grissom MD RBC (Bld) [#/Vol] 4.22 10*6/uL Normal 3.95-5.11 [facility] Comment on above: Performed By: #### C DP #### [address] [place] [id number] Rfid Strategist: Len Grissom MD WBC (Bld) [#/Vol] 8.1 10*3/uL Normal 3.5-11.3 [facility] Comment on above: Performed By: #### C DP #### [facility] [address] [place], [facility]83 Rfid Strategist: Len Grissom MD Auto Diff Performed NOT REPORTED Normal [facility] Comment on above: Performed By: #### C DP #### [facility] [address] [place] [address] Rfid Strategist: Len Grissom MD Platelets (Bld) [#/Vol] NOT REPORTED Normal [facility] Comment on above: Performed By: #### C DP #### [facility] [address] [place] [address] Rfid Strategist: Len Grissom MD RBC morphology finding Nom (Bld) NOT REPORTED Normal [facility] Comment on above: Performed By: #### C DP #### [facility] [address] [place] [address] Rfid Strategist: Len Grissom MD WBC Morphology NOT REPORTED Normal [facility] Comment on above: Performed By: #### C DP #### [facility] [address] [place] [address] Rfid Strategist: Len Grissom MD Drug Scr, Abuse, Uron 2018 Amphetamine(s),Ur Negative Normal NEG [facility] Comment on above: Performed By: #### D AU #### [address] [place] [address] Rfid Strategist: Len Grissom MD Barbiturate(s),Ur Negative Normal NEG [facility] Comment on above: Performed By: #### D AU #### [address] [place] [address] Rfid Strategist: Len Grissom MD Base excess Calc (Bld) [Moles/Vol] Negative Normal [facility] Comment on above: Performed By: #### D AU #### [facility] [address] [place], [facility]83 Rfid Strategist: Len Grissom MD Benzodiazepine(s) Negative Normal NEG [facility] Comment on above: Performed By: #### D AU #### [facility] [address] [place] [address] Rfid Strategist: Len Grissom MD Buprenorphrine, Ur Negative Normal [facility] Comment on above: Performed By: #### D AU #### [facility] [address] [place] [id number] Rfid Strategist: Len Grissom MD Cannabinoid(s),Ur Negative Normal NEG [facility] Comment on above: Performed By: #### D AU #### [facility] [address] [place] [id number] Rfid Strategist: Len Grissom MD Methadone Ql (U) Negative Normal NEG [facility] Comment on above: Performed By: #### D AU #### [facility] [address] [place] [phone] Rfid Strategist: Len Grissom MD Methamphetamine, Ur Negative Normal NEG [facility] Comment on above: Performed By: #### D AU #### [facility] [address] [place] [address] Dr. [place] [phone] Rfid Strategist: Len Grissom MD Opiate(s), Ur Negative Normal NEG [facility] Comment on above: Performed By: #### D AU #### [facility] [address] [place], [facility]83 Rfid Strategist: Len Grissom MD Oxycodone, Urine Negative Normal [facility] Comment on above: Performed By: #### D AU #### [facility] [address] [place] [address] Dr. [place] [id number] Rfid Strategist: Len Grissom MD Phencyclidine, Ur Negative Normal [facility] Comment on above: Performed By: #### D AU #### [facility] [address] [place] [id number] Rfid Strategist: Len Grissom MD Propoxyphene,Urine Negative Normal [facility] Comment on above: Performed By: #### D AU #### [facility] [address] [place] [address] Rfid Strategist: Len Grissom MD Tricyclic antidepressants Screen Ql (U) Negative Normal [facility] Comment on above: Result Comment: Drug screen results are to be used for medical purposes only. All positive results are unconfirmed. Testing for employment or legal uses should be sent to a reference laboratory for confirmation. Performed By: #### D AU #### [facility] [address] [place], [place] [id number] Rfid Strategist: Len Grissom MD Interpretive Info NOT REPORTED Normal [facility] Comment on above: Performed By: #### D AU #### [facility] [address] [place] [address] Rfid Strategist: Len Grissom MD MDMA, Urine NOT REPORTED Normal [facility]G [facility] Comment on above: Performed By: #### D AU #### [facility] [address] [place] [address] Rfid Strategist: Len Grissom MD Type + Screenon 02-12-2019 Type + Screen Sample Expiration 02/15/2019,2359 Arm Band Number [id number] ABO/Rh(D) B POSITIVE Antibody Screen NEGATIVE Antibody Ident NOT REPORTED Normal [facility] Comment on above: Performed By: #### T YS #### [facility] [address] [place] [address] Rfid Strategist: Len Grissom MD US PELVIS AND TRANSVAGon US PELVIS AND TRANSVAG [address] [place] [phone] Patient: TATIANA URIBE Exam Date: 11/13/2017DOB: 1995 Gender:F : DR MELISSA STEVENS Admission #: [id number] : Order #: [id number] HERE TO VIEW EXAM RADIOLOGY REPORT PROCEDURE: ULTRASOUND PELVIS AND TRANSVAGINAL COMPARISON: US PELVIS, 12/22/2013. INDICATIONS: Chronic bilateral pelvic pain, acute abnormal uterine bleeding TECHNIQUE: Transabdominal sonographic examination. Transvaginal sonographic examination.FINDINGS: UTERUS: Mildly septated uterus. Uterus: 5.7 x 3.9 x 2.7 cm (32 cc)ENDOMETRIUM: Normal homogeneous appearance. Endometrial thickness: 5 mm RIGHT OVARY: Normal size and appearance. Blood flow present within ovary on color Doppler. Right ovary: 3.7 x 2.8 x 1.8 cm (10 cc) LEFT OVARY: Normal size and appearance. Blood flow is present within ovary on Color Doppler. Left ovary: 3.3 x 2.0 x 2.1 cm (7 cc) CUL-DE-SAC: Unremarkable. No significant free fluid.BLADDER: Unremarkable.OTHER: None. CONCLUSION: 1. Mildly septate uterus. Otherwise unremarkable; no suspicious findings to account for the patient's symptoms. Dictated by: Dexter Smith M.D. on 11/13/2017 at 15:45 Approved by: Dexter Smith M.D. on 11/13/2017 at 15:49 Normal [facility] Encounters Encounter Date Encounter Type Care Provider Facility Start: 06-28-2023 ambulatory [facility] Not Jeanna ilable Start: 06-25-2023 End: 06-26-2023 ambulatory [facility] Not Available Start: 06-21-2023 End: 06-22-2023 ambulatory [facility] Not Available Start: 06-19-2023 End: 06-20-2023 ambulatory [facility] Not Available Start: 06-07-2023 End: 06-08-2023 ambulatory [facility] Not Available Start: 05-23-2023 End: 05-23-2023 ambulatory [facility] Not Available Start: 05-07-2023 End: 05-08-2023 ambulatory [facility] Not Available Start: 04-24-2023 End: 04-25-2023 ambulatory [facility] Not Available Start: 03-28-2023 End: 03-29-2023 ambulatory [facility] Not Available Start: 03-06-2023 End: 03-07-2023 ambulatory [facility] Not Available Start: 02-05-2023 End: 02-06-2023 ambulatory [facility] Not Available Start: 02-12-2019 End: 02-15-2019 Evaluation and management of inpatient [facility] Start: 11-13-2017 End: 11-14-2017 Patient encounter MELISSA STEVENS Facility:[id number] Procedures Date Procedure Procedure Detail Performing Clinician Start: 02-15-2019 DISCHARGE PATIENT JOELLE GUERRA Start: 02-14-2019 Blood count complete automated ADRIA GUERRA Start: 02-14-2019 Level iv surg pathol ogy gross&microscopic exam ADRIA GUERRA Start: 02-14-2019 ADVANCE DIET LIZ RATED (NURSING COMMUNICATION) ADRIA GUERRA Start: 02-14-2019 AMBULATE PATIENT JAYSHREE GUERRA Start: 02-14-2019 ASSESS ADRIA FL PAULO Start: 02-14-2019 DIET GENERAL ADRIA VINSON PAULO Start: 02-14-2019 FULL CODE ADRIA VINSON PAULO Start: 02-14-2019 ICE TO AFFECTED AREA DIAMANTE GUERRA Start: 02-14-2019 NOTIFY PHYSICIAN (SPECIFY) ADRIA GUERRA Start: 02-14-2019 REASON FOR NO CHEMIC AL VTE PROPHYLAXIS ADRIA GUERRA Start: 02-14-2019 SALINE LOCK IV ADRIA GUERRA Start: 02-14-2019 STRAIGHT CATH ADRIA HAWKINS Start: 02-14-2019 VITAL SIGNS ADRIA KAREL PAULO Start: 02-14-2019 TRANSFER PATIENT JAYSHREE GUERRA Start: 02-13-2019 PATIENT STATUS (DIRECT) ADRIA GUERRA Start: 02-13-2019 Level iv surg pathol ogy gross&microscopic exam ADRIA GUERRA Start: 02-12-2019 TYPE AND SCREEN ADRIA GUERRA Start: 02-12-2019 Gluc bld gluc mntr d ev cleared fda spec home use ADRIA GUERRA Start: 02-12-2019 REASON FOR NO CHEMIC AL VTE PROPHYLAXIS ADRIA GUERRA Start: 02-12-2019 Blood count complete auto&auto difrntl wbc ADRIA GUERRA Start: 02-12-2019 Drug screen class list a ADRIA GUERRA Start: 01-24-2019 GBS, EXTERNAL RESULT DIAMANTE GUERRA Payers Date Payer Category Payer Private Health Insurance [id number] 2022 Private Health Insurance [id number] 2019 Unknown [id number] 1996 Unknown [id number] 2.16.8 [id number] 1996 Unknown [id number] 2.16.84 0.1.160794.3.579.2.1258 1996 Unknown [id number] 2.16.84 0.1.356897.3.579.2.1258 1996 Unknown [id number] 2.16.84 0.1.872365.3.579.2.1258 1996 Unknown [id number] 2.16.84 0.1.138451.3.579.2.1258 1996 Unknown [id number] 2.16.84 0.1.320388.3.579.2.1258 1996 Unknown [id number] 2.16.84 0.1.277874.3.579.2.1258 1996 Unknown [id number] 2.16.84 0.1.033605.3.579.2.1258 1996 Unknown [id number] 2.16.84 0.1.258889.3.579.2.1258 1996 Unknown [id number] 2.16.84 0.1.317328.3.579.2.1258 1996 Unknown [id number] 2.16.84 0.1.115183.3.579.2.1258 1996 Unknown [id number] 2.16.84 0.1.072871.3.579.2.1258 1996 Unknown [id number] 2.16.840 .1.678966.3.579.2.1258 1996 Unknown [id number] 2.16.840 .1.829329.3.579.2.1258 1959 Unknown [id number] Summary Purpose Family History No Family History Records FoundNo Family History Records FoundNo Family History Records FoundNo Family History Records Found Advance Directives No Advanced Directives Records FoundNo Advanced Directives Records FoundNo Advanced Directives Records FoundNo Advanced Directives Records Found Additional Source Comments INFORMATION SOURCE (unrecogn ized section and content) DATE CREATED AUTHOR 12/19/2017 [facility] DATE CREATED AUTHOR AUTHOR'S ORGANIZ ATION 03/20/2019 [facility] DATE CREATED AUTHOR AUTHOR'S ORGANIZ ATION 04/27/2021 [facility] DATE CREATED AUTHOR AUTHOR'S BLAKE AGRAWAL 06/30/2023 [facility] EPIC FOR RECORDS PERTAINING TO PATIENTS WHO ARE OR HAVE BEEN ENROLLED IN A CHEMICAL DEPENDENCY/SUBSTANCEABUSE PROGRAM, SOME INFORMATION MAY BE OMITTED. This clinical summary was aggregated from multiple sources. Caution should be exercised in using it in the provision of clinical care. This summary normalizes information from multiple sources, and as a consequence, information in this document may materially change the coding, format and clinical context of patient data. In addition, data may be omitted in some cases. CLINICAL DECISIONS SHOULD BE BASED ON THE PRIMARY CLINICAL RECORDS. [facility] [employer] provides no warranty or guarantee of the accuracy or completeness of information in this document.
[2023-07-02 16:24] VITALS: BP 127/68; PULSE 99
== END 2023-07-02 16:50 | disposition home or self-care (01) ==
LOC: FBCO 07:19 → FBC 16:21
PROVIDERS: Family Provider Obstetrics & Gynecology; PCP Family Medicine; Visit Provider Midwife
DX: O26.893 Other specified pregnancy related conditions, third trimester (principal)
CPT/HCPCS: 59025

== ENCOUNTER 2023-07-24 16:45 | Observation (INO) | payer OTHER, SELFPAY ==
[2023-07-24 17:03] VITALS: BP 122/63; PULSE 122
[2023-07-24 17:12] VITALS: TEMP 35.9
[2023-07-24 17:14] VITALS: TEMP 36.7
[2023-07-24 17:15] LABS: Bilirubin Urine NEGATIVE (NEGATIVE); Blood Urine MODERATE (NEGATIVE); Clarity Urine CLEAR (CLEAR); Color Urine YELLOW (YELLOW); Glucose Urine UA NEGATIVE (NEGATIVE); Ketones Urine TRACE mg/dL (NEGATIVE); Leukocyte Esterase Urine TRACE (NEGATIVE); Nitrite Urine NEGATIVE (NEGATIVE); Protein Urine NEGATIVE (NEG/TRACE); Specific Gravity Urine >=1.030 (1.005-1.025)
[2023-07-24 17:18] LABS: Urine Microscopic Indicated YES
[2023-07-24 17:39] LABS: Bacteria Urine TRACE #/HPF (NONE SEEN); Calcium Oxalate Crystals Urine MODERATE; Crystals Seen? Seen #/HPF (None Seen); Mucus Urine SMALL (NONE SEEN); Squamous Epithelial Cell Urine MANY #/LPF (NONE/RARE); WBC Urine 0-2 #/HPF (NONE SEEN)
[2023-07-24 17:40] LABS: Cast Seen? NONE SEEN #/LPF (NONE SEEN); Urine Culture Indicated NO
[2023-07-24] MEDS: CEPHALEXIN 500 MG CAPSULE PO (18:27)
== END 2023-07-24 18:50 | disposition home or self-care (01) ==
PROVIDERS: Admitting Provider Midwife; Family Provider Obstetrics & Gynecology; PCP Family Medicine; Visit Provider Midwife
DX: O47.1 False labor at or after 37 completed weeks of gestation (principal); Z3A.37 37 weeks gestation of pregnancy
CPT/HCPCS: 81001; G0378; G0379

== ENCOUNTER 2023-08-08 18:19 | Inpatient (IN) | payer OTHER, SELFPAY ==
[2023-08-08] VITALS (28 sets, daily range): BP systolic 80–139; BP diastolic 45–89; PULSE 76–112; TEMP 36.5–37.1; O2SAT 97–100
--- OUTSIDE RECORDS SUMMARY | 2023-08-08 18:29 | XMS_ITS | CCD ---
Author Organization [facility] Care Team Providers Care Lot Worker Name Role Phone HILDA, MELISSA Unavailable Unavailable HILDA, MELISSA Unavailable Unavailable DEXTER SMITH Unavailable Unavailable MELISSA STEVENS Unavailable Unavailable FLORO, ADRIA Admitting Unavailable FLORO, [...] ADRIA L Referring Unavailable FLORO, ADRIA L Referring Unavailable FLORO, ADRIA L Attending Unavailable FLORO, ADRIA L Attending Unavailable BENSONROBERT Attending Unavailable FLORO, ADRIA L Referring Unavailable FLORO, ADRIA L Attending Unavailable FLORO, ADRIA L Referring Unavailable FLORO, ADRIA L Attending Unavailable FLORO, ADRIA L Referring Unavailable FLORO, ADRIA L Attending Unavailable FLORO, ADRIA L Referring Unavailable FLORO, ADRIA L Attending Unavailable FLORO, ADRIA L Attending Unavailable Problems Problem Classification Problem Date Documented Da te Episodic/Chronic Abdominal pain (4 sources) Pelvic and perineal pain; Translations: [PELVIC AND PERINEAL PAIN] Onset: 11-13-2017 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 Normal activity and amniotic fluid volume. Amniotic fluid index is 14 cm. Morphology is grossly normal. The cervix is long and closed, 3.7 cm. The placenta is posterior, not associated with the cervical os. The current sonographic age is 38 weeks and 5 days, based on the following measurements: BPD 9.5 cm (38 weeks, 5 days) Head Circumference 34.0 cm (39 weeks, 0 days) Abdominal Circumference 34.9 cm (38 weeks, 6 days) Femur Length 7.5 cm (38 weeks, 4 days) Presentation Cephalic Placenta Posterior Grade II Weight (g) by Percentile 65.5 % * These measurements result in an estimated date of delivery of August 11, 2023. The current estimated weight is 3588 grams (7 pounds, 15 ounces). IMPRESSION: 1. Single, live intrauterine , current sonographic age of 38 weeks and 5 days, with an estimated date of delivery of August 11, 2023. 2. Current estimated weight 3588 grams (7 pounds, 15 ounces) * Estimated Weight (g) by Percentile is based upon an accurate estimated age based on last menstrual period. TRANSCRIBED BY: ELECTRONICALLY SIGNED BY: Moisés Greenwood MD Normal Not Available US BIOPHYSICAL PROFILE WO NON STRESS TESTINGon 07-26-2023 US BIOPHYSICAL PROFILE WO NON STRESS TESTING FINDINGS: Breathing Movements 2 Gross Body Movements 2 Tone 2 Qualitative amniotic fluid volume 2 A single, viable intrauterine is present. The placenta is posterior, Grade 2 not associated with the cervical os. heart rate 147. IDALIA 14.0 cm. IMPRESSION: Posterior placenta, Grade 2 and normal biophysical profile 8/8. TRANSCRIBED BY: ELECTRONICALLY SIGNED BY: Moisés Greenwood MD Normal Not Available US BIOPHYSICAL PROFILE WO NON STRESS TESTINGon 07-19-2023 US BIOPHYSICAL PROFILE WO NON STRESS TESTING EXAMINATION: Biophysical profile. HISTORY: Gestational diabetes. COMPARISON: July 19, 2023 1621 hours. TECHNIQUE: Transabdominal ultrasound of the gravid uterus was performed. FINDINGS: A score of 2/2 was given for breathing, tone, gross movement and IDALIA for a total score of 8/8. heart rate is 138 bpm. IDALIA is 14.1 IMPRESSION: Biophysical profile of 10/10. Correlate clinically. ELECTRONICALLY SIGNED BY: Chandan Kim MD Normal Not Available US BIOPHYSICAL PROFILE WO NON STRESS TESTINGon 07-12-2023 US BIOPHYSICAL PROFILE WO NON STRESS TESTING FINDINGS: Breathing Movements 2 Gross Body Movements 2 Tone 2 Qualitative amniotic fluid volume 2 A single, viable intrauterine is present. The placenta is posterior, Grade I, not associated with the cervical os. Cervix 3.6 cm. Heart rate 139 bpm. Cephalic presentation. IMPRESSION: Normal biophysical profile 10/10 TRANSCRIBED BY: ELECTRONICALLY SIGNED BY: Moisés Greenwood MD Normal Not Available US OB FOLLOW UP TRANSABDOMIN AL APPROACHon 07-05-2023 US OB FOLLOW UP TRANSABDOMINAL APPROACH FINDINGS: A single, live intrauterine is present with normal cardiac rate of 158 beats per minute. Normal activity and amniotic fluid volume. Amniotic fluid index is 14.0 cm. Morphology is grossly normal. The cervix is long and closed, 4.0 cm. The placenta is posterior, not associated with the cervical os. The current sonographic age is 35 weeks and 0 days, based on the following measurements: BPD 8.7cm ( 35 weeks, 0 days) Head Circumference 31.2cm (35 weeks, 0days) Abdominal Circumference 31.2cm (35 weeks, 1 days) Femur Length 6.8cm ( 34 weeks, 5 days) Presentation Cephalic Placenta Posterior, Grade 1 These measurements result in an estimated date of delivery of The current estimated weight is 2570 grams +/- grams ( 5 pound, 11 ounces). Weight by percentile 50.8% IMPRESSION: Single, live intrauterine , current sonographic age of 35 weeks and 0 days, with an estimated date of delivery of August 09, 2023. TRANSCRIBED BY: ELECTRONICALLY SIGNED BY: Moisés Greenwood MD Normal Not Available US BIOPHYSICAL PROFILE [...] Moisés Greenwood MD Normal Not Available US BIOPHYSICAL PROFILE [...] HCG ( test) Ql (U) Negative Normal [facility] Comment on above: Result Comment: PERF ORMED BY: [place] [address] [address] M.D. Performed By: #### C BC, ESR, OB(GUAIAC), CMP, HEPATIC #### [facility] [address] [place] [address] #### CALPROTECT, ELASTASE STOOL, BOWEL CASC #### [facility] , [place] 07-19-2020 L ---- Specimen: [id number] Received: 07/19/20 Status: SAIDA Galloway Num: [id number] Spec Type: Surgical Subm Dr: Terrence Francois MD Tissues: A Colon Biopsy (RANDOM COLON BX) B Colon - Polyp (SIGMOID COLON POLYP) Procedures: HE Stain/4, Gross/Micro L4/2 Patient Age/Sex Location Account Attending Physician Tatiana Uribe 24/F [id number] Terrence Francois MD SPEC NUM: [id number] RECD: 07/19/20 STATUS: SAIDA GALLOWAY NUM: [id number] JOSEPH: 07/19/[address] [facility] [address]: Terrence Francois MD ENTERED: 07/19/20 MELISSA [...] Entirely submitted in one cassette labeled A1. (CAPRI/CHANTAL) B. Received in formalin labeled with the patient's name, number and sigmoid colon polyp is a 0.5 cm bill, sessile mucosal polyp. The resection margin is inked blue and the fragment is bisected. Entirely submitted in one cassette labeled B1. (CAPRI/CHANTAL) Specimen: [id number] Received: 07/19/20 Status: SAIDA Laverne Num: [id number] Spec Type: Surgical Subm Dr: Terrence Francois MD Tissues: A Colon Biopsy (RANDOM COLON BX) B Colon - Polyp (SIGMOID COLON POLYP) Procedures: HE Stain/4, Gross/Micro L4/2 Patient: Tatiana Uribe [id number] (Continued) Specimen: Received: 07/19/20 (Continued) Signed (signature on file) Kirby Street MD 07/20/20 1552 Specimen: Received: 07/19/20 Status: SAIDA Laverne Num: [id number] Spec Type: Surgical Subm Dr: Terrence Francois MD Tissues: A Colon Biopsy (RANDOM COLON BX) B Colon - Polyp (SIGMOID COLON POLYP) Procedures: HE Stain/4, Gross/Micro L4/2 Patient: Tatiana Uribe [id number] (Continued) Specimen: Received: 07/19/20 (Continued) Microscopic Description A. Two glass slides with H E stained material have been examined. The microscopic findings support the above pathologic diagnosis. B. Two glass slides with H E stained material have been examined. The microscopic findings support the above pathologic diagnosis. [id number] Specimen: [id number] Received: 07/19/20 Status: SAIDA Galloway Num: [id number] Spec Type: Surgical Subm Dr: Terrence Francois MD Tissues: A Colon Biopsy (RANDOM COLON BX) B Colon - Polyp (SIGMOID COLON POLYP) Procedures: HE Stain/4, Gross/Micro L4/2 Patient: Tatiana Uribe [id number] (Continued) Signed (signature on file) Kirby Street MD 07/20/20 1552 [facility] COVID-19 Antigenon 1 COVID-19 Antigen Healthcare Worker?: N Judah Reference Judah Reference Negative SARS-CoV+SARS-CoV-2 (COVID-19) Ag [Presence] in Respiratory specimen by Rapid immunoassay Negative for SARS Antigen by RUSYT COVID19 Blank Space ------ Judah Disclaimer Negative [...] its performance Judah Disclaimer characteristic determined by [employer] and Judah Disclaimer validated at [facility]. This Judah Disclaimer test has not [...] is terminated or revoked sooner. PERFORMED BY: [place] [address] [address] M.D. Normal [facility] Comment on above: Performed By: #### C OVID-19 JUDAH, SOFIANEG #### [address] Judah Ag Negativeon 07-16-19 21 Judah Ag Negative Negative Normal Negative [facility] Comment on above: Result Comment: This is a duplicate Judah SARS Antigen (RUSTY) result to be used for statistical tracking purpose only. PERFORMED BY: [place] [id number] PATHOLOGIST WINDOW DECORATOR [address] M.D. Performed By: #### C OVID-19 JUDAH, SOFIANEG #### [place] [id number] [place] Bowel Disorders [place] Antigliadin IgG 3 Normal 0-19 [facility] Comment on above: Order Comment: Reaso n for Exam Diarrhea;GERD (gastroesophageal reflux disease);Elevated LFT Result Comment: Nega tive 0 - 19 Weak Positive 20 - 30 Moderate to Strong Positive >30 Performed By: #### C BC, ESR, OB(GUAIAC), CMP, HEPATIC #### [place] [address] [place] #### CALPROTECT, ELASTASE STOOL, BOWEL CASC #### [facility] , Atypical pANCA Negative Normal Negative [facility] Comment on above: Order Comment: Reaso n for Exam Diarrhea;GERD (gastroesophageal reflux disease);Elevated LFT Performed By: #### C BC, ESR, OB(GUAIAC), CMP, HEPATIC #### [address] #### CALPROTECT, ELASTASE STOOL, BOWEL CASC #### [facility] , Bowel Disorders [place] Negative Normal Negative [facility] Comment on above: Order Comment: Reaso n for Exam Diarrhea;GERD (gastroesophageal reflux disease);Elevated LFT Performed By: #### C BC, ESR, OB(GUAIAC), CMP, HEPATIC #### [address] #### CALPROTECT, ELASTASE STOOL, BOWEL CASC #### [facility] , Note Brantley continues Normal . [facility] Comment on above: Order Comment: Reaso n for Exam Diarrhea;GERD (gastroesophageal reflux disease);Elevated LFT Performed By: #### C BC, ESR, OB(GUAIAC), CMP, HEPATIC #### [facility] [address] [place] [address] [place] #### CALPROTECT, ELASTASE STOOL, BOWEL CASC #### [facility] , Note Normal . [facility] Comment on above: Order Comment: Reaso n for Exam Diarrhea;GERD (gastroesophageal reflux disease);Elevated LFT Result Comment: Sugg estive of irritable bowel syndrome (IBS). Careful evaluation of the patient's history, physical examination, and application of [place] III diagnostic criteria may help to rule in or rule out the diagnosis of IBS. Subsequent testing for Fecal Calprotectin (142340) may be recommended. If IBD is strongly suspected, subsequent testing with the Crohn's Disease Prognostic Profile (447417) that includes anti-glycan antibodies AMCA, ALCA, ACCA, and Simone may aid in differential diagnosis. Performed at: [facility] [id number] Calculator Operator: Dennis Dooley MD, Phone: [phone] PERFORMED BY: [place] [address] [address] M.D. Performed By: #### C BC, ESR, OB(GUAIAC), CMP, HEPATIC #### [address] #### CALPROTECT, ELASTASE STOOL, BOWEL CASC #### [facility] , Saccharomyces cerevisiae, IgG <20.0 Normal 0.0-24.9 [facility] Comment on above: Order Comment: Reaso n for Exam Diarrhea;GERD (gastroesophageal reflux disease);Elevated LFT Result Comment: Nega tive <20.0 Equivocal 20.1 - 24.9 Positive >or= 25.0 Performed By: #### C BC, ESR, OB(GUAIAC), CMP, HEPATIC #### [address] #### CALPROTECT, ELASTASE STOOL, BOWEL CASC #### [facility] , Calprotectin, Fecalon 2020 Calprotectin, Fecal 29 Normal 0-120 [facility] Comment on above: Order Comment: Reaso n for Exam Diarrhea;Fecal incontinence Result Comment: Conc entration Interpretation Follow-Up <16 - 50 ug/g Normal None >50 -120 ug/g Borderline Re-evaluate in 4-6 weeks >120 ug/g Abnormal Repeat as clinically indicated Performed at: - [facility] [id number] Calculator Operator: Dennis Dooley MD, Phone: [phone] PERFORMED BY: [place] [address] [address] M.D. Performed By: #### C BC, ESR, OB(GUAIAC), CMP, HEPATIC #### [address] #### CALPROTECT, ELASTASE STOOL, BOWEL CASC #### [facility] , Complete Blood Count Auto Di ffon 06-25-2020 Basophils (Bld) [#/Vol] 0.0 10*3/uL Normal 0.0-0.2 [facility] Comment on above: Order Comment: Reaso n for Exam Diarrhea;GERD (gastroesophageal reflux disease);Elevated LFT Performed By: #### C BC, ESR, OB(GUAIAC), CMP, HEPATIC #### [place] [address] [place] #### CALPROTECT, ELASTASE STOOL, BOWEL CASC #### [facility] , Basophils/100 WBC (Bld) 0.3 % Normal . [facility] Comment on above: Order Comment: Reaso n for Exam Diarrhea;GERD (gastroesophageal reflux disease);Elevated LFT Performed By: #### C BC, ESR, OB(GUAIAC), CMP, HEPATIC #### [place] [address] [place] #### CALPROTECT, ELASTASE STOOL, BOWEL CASC #### [facility] , Eosinophils (Bld) [#/Vol] 0.0 10*3/uL Normal 0.0-0.45 [facility] Comment on above: Order Comment: Reaso n for Exam Diarrhea;GERD (gastroesophageal reflux disease);Elevated LFT Performed By: #### C BC, ESR, OB(GUAIAC), CMP, HEPATIC #### [place] [address] [place] #### CALPROTECT, ELASTASE STOOL, BOWEL CASC #### [facility] , Eosinophils/100 WBC (Bld) 0.4 % Normal . [facility] Comment on above: Order Comment: Reaso n for Exam Diarrhea;GERD (gastroesophageal reflux disease);Elevated LFT Performed By: #### C BC, ESR, OB(GUAIAC), CMP, HEPATIC #### [address] #### CALPROTECT, ELASTASE STOOL, BOWEL CASC #### [facility] , Erythrocyte distribution width (RBC) [Ratio] 12.8 % Normal 11.9-15.3 [facility] Comment on above: Order Comment: Reaso n for Exam Diarrhea;GERD (gastroesophageal reflux disease);Elevated LFT Performed By: #### C BC, ESR, OB(GUAIAC), CMP, HEPATIC #### [address] #### CALPROTECT, ELASTASE STOOL, BOWEL CASC #### [facility] , Hematocrit (Bld) [Volume fraction] 39.3 % Normal 34.0-46.4 [facility] Comment on above: Order Comment: Reaso n for Exam Diarrhea;GERD (gastroesophageal reflux disease);Elevated LFT Performed By: #### C BC, ESR, OB(GUAIAC), CMP, HEPATIC #### [address] #### CALPROTECT, ELASTASE STOOL, BOWEL CASC #### [facility] , Hemoglobin (Bld) [Mass/Vol] 13.6 g/dL Normal 11.8-15.4 [facility] Comment on above: Order Comment: Reaso n for Exam Diarrhea;GERD (gastroesophageal reflux disease);Elevated LFT Performed By: #### C BC, ESR, OB(GUAIAC), CMP, HEPATIC #### [place] [address] [place] #### CALPROTECT, ELASTASE STOOL, BOWEL CASC #### [facility] , Lymphocytes (Bld) [#/Vol] 1.4 10*3/uL Normal 1.00-4.8 [facility] Comment on above: Order Comment: Reaso n for Exam Diarrhea;GERD (gastroesophageal reflux disease);Elevated LFT Performed By: #### C BC, ESR, OB(GUAIAC), CMP, HEPATIC #### [address] #### CALPROTECT, ELASTASE STOOL, BOWEL CASC #### [facility] , Lymphocytes/100 WBC (Bld) 27.3 % Normal . [facility] Comment on above: Order Comment: Reaso n for Exam Diarrhea;GERD (gastroesophageal reflux disease);Elevated LFT Performed By: #### C BC, ESR, OB(GUAIAC), CMP, HEPATIC #### [address] #### CALPROTECT, ELASTASE STOOL, BOWEL CASC #### [facility] , MCH (RBC) [Entitic mass] 30.3 pg Normal 24.7-34.3 [facility] Comment on above: Order Comment: Reaso n for Exam Diarrhea;GERD (gastroesophageal reflux disease);Elevated LFT Performed By: #### C BC, ESR, OB(GUAIAC), CMP, HEPATIC #### [address] #### CALPROTECT, ELASTASE STOOL, BOWEL CASC #### [facility] , MCV (RBC) [Entitic vol] 87.6 fL Normal 80-100 [facility] Comment on above: Order Comment: Reaso n for Exam Diarrhea;GERD (gastroesophageal reflux disease);Elevated LFT Performed By: #### C BC, ESR, OB(GUAIAC), CMP, HEPATIC #### [place] [address] [place] #### CALPROTECT, ELASTASE STOOL, BOWEL CASC #### [facility] , Mean Corpuscular HGB Conc 34.6 g/dL Normal 32.0-35.0 [facility] Comment on above: Order Comment: Reaso n for Exam Diarrhea;GERD (gastroesophageal reflux disease);Elevated LFT Performed By: #### C BC, ESR, OB(GUAIAC), CMP, HEPATIC #### [facility] [address] [place] [address] [place] #### CALPROTECT, ELASTASE STOOL, BOWEL CASC #### [facility] , Monocytes (Bld) [#/Vol] 0.3 10*3/uL Normal 0.0-0.8 [facility] Comment on above: Order Comment: Reaso n for Exam Diarrhea;GERD (gastroesophageal reflux disease);Elevated LFT Performed By: #### C BC, ESR, OB(GUAIAC), CMP, HEPATIC #### [address] #### CALPROTECT, ELASTASE STOOL, BOWEL CASC #### [facility] , Monocytes/100 WBC (Bld) 6.7 % Normal . [facility] Comment on above: Order Comment: Reaso n for Exam Diarrhea;GERD (gastroesophageal reflux disease);Elevated LFT Performed By: #### C BC, ESR, OB(GUAIAC), CMP, HEPATIC #### [place] [address] [place] #### CALPROTECT, ELASTASE STOOL, BOWEL CASC #### [facility] , Neutrophils (Bld) [#/Vol] 3.3 10*3/uL Normal 1.8-7.7 [facility] Comment on above: Order Comment: Reaso n for Exam Diarrhea;GERD (gastroesophageal reflux disease);Elevated LFT Performed By: #### C BC, ESR, OB(GUAIAC), CMP, HEPATIC #### [place] [address] [place] #### CALPROTECT, ELASTASE STOOL, BOWEL CASC #### [facility] , Neutrophils/100 WBC (Bld) 65.3 % Normal . [facility] Comment on above: Order Comment: Reaso n for Exam Diarrhea;GERD (gastroesophageal reflux disease);Elevated LFT Performed By: #### C BC, ESR, OB(GUAIAC), CMP, HEPATIC #### [facility] [address] [place] [address] [place] #### CALPROTECT, ELASTASE STOOL, BOWEL CASC #### [facility] , Nucleated RBC/100 WBC (Bld) [Ratio] 0.3 % Normal 0-0.5 [facility] Comment on above: Order Comment: Reaso n for Exam Diarrhea;GERD (gastroesophageal reflux disease);Elevated LFT Performed By: #### C BC, ESR, OB(GUAIAC), CMP, HEPATIC #### [address] #### CALPROTECT, ELASTASE STOOL, BOWEL CASC #### [facility] , Platelet mean volume (Bld) [Entitic vol] 7.8 fL Normal 6.3-10.7 [facility] Comment on above: Order Comment: Reaso n for Exam Diarrhea;GERD (gastroesophageal reflux disease);Elevated LFT Performed By: #### C BC, ESR, OB(GUAIAC), CMP, HEPATIC #### [place] [address] [place] #### CALPROTECT, ELASTASE STOOL, BOWEL CASC #### [facility] , Platelets (Bld) [#/Vol] 232 10*3/uL Normal 150-450 [facility] Comment on above: Order Comment: Reaso n for Exam Diarrhea;GERD (gastroesophageal reflux disease);Elevated LFT Performed By: #### C BC, ESR, OB(GUAIAC), CMP, HEPATIC #### [place] [address] [place] #### CALPROTECT, ELASTASE STOOL, BOWEL CASC #### [facility] , RBC (Bld) [#/Vol] 4.49 10*6/uL Normal 3.60-5.00 [facility] Comment on above: Order Comment: Reaso n for Exam Diarrhea;GERD (gastroesophageal reflux disease);Elevated LFT Performed By: #### C BC, ESR, OB(GUAIAC), CMP, HEPATIC #### [facility] [address] [place] [address] [place] #### CALPROTECT, ELASTASE STOOL, BOWEL CASC #### [facility] , WBC (Bld) [#/Vol] 5.0 10*3/uL Normal 4.5-11.0 [facility] Comment on above: Order Comment: Reaso n for Exam Diarrhea;GERD (gastroesophageal reflux disease);Elevated LFT Performed By: #### C BC, ESR, OB(GUAIAC), CMP, HEPATIC #### [address] #### CALPROTECT, ELASTASE STOOL, BOWEL CASC #### [facility] , Comprehensive Metabolic Pane [place] 06-25-2020 Albumin [Mass/Vol] 4.4 g/dL Normal 3.2-5.5 [facility] Comment on above: Order Comment: Reaso n for Exam Diarrhea;GERD (gastroesophageal reflux disease);Elevated LFT Performed By: #### C BC, ESR, OB(GUAIAC), CMP, HEPATIC #### [place] [address] [place] #### CALPROTECT, ELASTASE STOOL, BOWEL CASC #### [facility] , Albumin/Globulin [Mass ratio] 1.5 {ratio} Normal [facility] Comment on above: Order Comment: Reaso n for Exam Diarrhea;GERD (gastroesophageal reflux disease);Elevated LFT Performed By: #### C BC, ESR, OB(GUAIAC), CMP, HEPATIC #### [place] [address] [place] #### CALPROTECT, ELASTASE STOOL, BOWEL CASC #### [facility] , ALP [Catalytic activity/Vol] 89 U/L Normal 32-92 [facility] Comment on above: Order Comment: Reaso n for Exam Diarrhea;GERD (gastroesophageal reflux disease);Elevated LFT Performed By: #### C BC, ESR, OB(GUAIAC), CMP, HEPATIC #### [place] [address] [place] #### CALPROTECT, ELASTASE STOOL, BOWEL CASC #### [facility] , ALT [Catalytic activity/Vol] 20 U/L Normal 10-60 [facility] Comment on above: Order Comment: Reaso n for Exam Diarrhea;GERD (gastroesophageal reflux disease);Elevated LFT Performed By: #### C BC, ESR, OB(GUAIAC), CMP, HEPATIC #### [place] [address] [place] #### CALPROTECT, ELASTASE STOOL, BOWEL CASC #### [facility] , AST [Catalytic activity/Vol] 11 U/L Normal 10-42 [facility] Comment on above: Order Comment: Reaso n for Exam Diarrhea;GERD (gastroesophageal reflux disease);Elevated LFT Performed By: #### C BC, ESR, OB(GUAIAC), CMP, HEPATIC #### [address] #### CALPROTECT, ELASTASE STOOL, BOWEL CASC #### [facility] , Bilirubin [Mass/Vol] 0.8 mg/dL Normal 0.3-1.2 [facility] Comment on above: Order Comment: Reaso n for Exam Diarrhea;GERD (gastroesophageal reflux disease);Elevated LFT Performed By: #### C BC, ESR, OB(GUAIAC), CMP, HEPATIC #### [place] [address] [place] #### CALPROTECT, ELASTASE STOOL, BOWEL CASC #### [facility] , Calcium [Mass/Vol] 9.1 mg/dL Normal 8.2-10.2 [facility] Comment on above: Order Comment: Reaso n for Exam Diarrhea;GERD (gastroesophageal reflux disease);Elevated LFT Performed By: #### C BC, ESR, OB(GUAIAC), CMP, HEPATIC #### [place] [address] [place] #### CALPROTECT, ELASTASE STOOL, BOWEL CASC #### [facility] , Chloride [Moles/Vol] 101 mmol/L Normal 95-114 [facility] Comment on above: Order Comment: Reaso n for Exam Diarrhea;GERD (gastroesophageal reflux disease);Elevated LFT Performed By: #### C BC, ESR, OB(GUAIAC), CMP, HEPATIC #### [place] [address] [place] #### CALPROTECT, ELASTASE STOOL, BOWEL CASC #### [facility] , CO2 [Moles/Vol] 26.9 mmol/L Normal 22.0-30.0 [facility] Comment on above: Order Comment: Reaso n for Exam Diarrhea;GERD (gastroesophageal reflux disease);Elevated LFT Performed By: #### C BC, ESR, OB(GUAIAC), CMP, HEPATIC #### [address] #### CALPROTECT, ELASTASE STOOL, BOWEL CASC #### [facility] , Creatinine [Mass/Vol] 0.59 mg/dL Normal 0.44-1.03 [facility] Comment on above: Order Comment: Reaso n for Exam Diarrhea;GERD (gastroesophageal reflux disease);Elevated LFT Performed By: #### C BC, ESR, OB(GUAIAC), CMP, HEPATIC #### [place] [address] [place] #### CALPROTECT, ELASTASE STOOL, BOWEL CASC #### [facility] , Estimated GFR ( Melly > 60 Normal [facility] Comment on above: Order Comment: Reaso n for Exam Diarrhea;GERD (gastroesophageal reflux disease);Elevated LFT Result Comment: GFR estimated reference range: According to KDOQI guidelines, <60 ml/min/1.73m2 is sufficient to diagnose a patient with chronic kidney disease. Performed By: #### C BC, ESR, OB(GUAIAC), CMP, HEPATIC #### [place] [address] [place] #### CALPROTECT, ELASTASE STOOL, BOWEL CASC #### [facility] , Estimated GFR (Non- Am > 60 Normal [facility] Comment on above: Order Comment: Reaso n for Exam Diarrhea;GERD (gastroesophageal reflux disease);Elevated LFT Performed By: #### C BC, ESR, OB(GUAIAC), CMP, HEPATIC #### [address] #### CALPROTECT, ELASTASE STOOL, BOWEL CASC #### [facility] , Globulin (S) [Mass/Vol] 2.9 g/dL Normal [facility] Comment on above: Order Comment: Reaso n for Exam Diarrhea;GERD (gastroesophageal reflux disease);Elevated LFT Performed By: #### C BC, ESR, OB(GUAIAC), CMP, HEPATIC #### [address] [address] #### CALPROTECT, ELASTASE STOOL, BOWEL CASC #### [facility] , Glucose [Mass/Vol] 90 mg/dL Normal 70-100 [facility] Comment on above: Order Comment: Reaso n for Exam Diarrhea;GERD (gastroesophageal reflux disease);Elevated LFT Result Comment: [place] Glucose Reference Range is dependent on time and content of last meal. Glucose of more than 200 mg/dL in a nonstressed, ambulatory subject supports the diagnosis of Diabetes Mellitus. ADA recommended reference range Performed By: #### C BC, ESR, OB(GUAIAC), CMP, HEPATIC #### [place] [address] [place] #### CALPROTECT, ELASTASE STOOL, BOWEL CASC #### [facility] , Potassium [Moles/Vol] 4.1 mmol/L Normal 3.5-5.1 [facility] Comment on above: Order Comment: Reaso n for Exam Diarrhea;GERD (gastroesophageal reflux disease);Elevated LFT Performed By: #### C BC, ESR, OB(GUAIAC), CMP, HEPATIC #### [place] [address] [place] #### CALPROTECT, ELASTASE STOOL, BOWEL CASC #### [facility] , Protein [Mass/Vol] 7.3 g/dL Normal 6.1-7.9 [facility] Comment on above: Order Comment: Reaso n for Exam Diarrhea;GERD (gastroesophageal reflux disease);Elevated LFT Performed By: #### C BC, ESR, OB(GUAIAC), CMP, HEPATIC #### [address] #### CALPROTECT, ELASTASE STOOL, BOWEL CASC #### [facility] , Sodium [Moles/Vol] 137 mmol/L Normal 136-146 [facility] Comment on above: Order Comment: Reaso n for Exam Diarrhea;GERD (gastroesophageal reflux disease);Elevated LFT Performed By: #### C BC, ESR, OB(GUAIAC), CMP, HEPATIC #### [address] #### CALPROTECT, ELASTASE STOOL, BOWEL CASC #### [facility] , Urea nitrogen [Mass/Vol] 12 mg/dL Normal 9-23 [facility] Comment on above: Order Comment: Reaso n for Exam Diarrhea;GERD (gastroesophageal reflux disease);Elevated LFT Performed By: #### C BC, ESR, OB(GUAIAC), CMP, HEPATIC #### [address] #### CALPROTECT, ELASTASE STOOL, BOWEL CASC #### [facility] , Erythrocyte Sedimentation Ra grisel 06-25-2020 ESR (Bld) [Velocity] 13 mm/h Normal 0-19 [facility] Comment on above: Order Comment: Reaso n for Exam Diarrhea;GERD (gastroesophageal reflux disease);Elevated LFT Result Comment: PERF ORMED BY: [place] [address] PATH[address] M.D. Performed By: #### C BC, ESR, OB(GUAIAC), CMP, HEPATIC #### [address] #### CALPROTECT, ELASTASE STOOL, BOWEL CASC #### [facility] , Hepatic Panelon 06-25-2020 Bilirubin,Indirect 0.7 mg/dL Normal [facility] Comment on above: Order Comment: Reaso n for Exam Diarrhea;GERD (gastroesophageal reflux disease);Elevated LFT Result Comment: PERF ORMED BY: [place] [address] [address] M.D. Performed By: #### C BC, ESR, OB(GUAIAC), CMP, HEPATIC #### [facility] [address] [place] [address] #### CALPROTECT, ELASTASE STOOL, BOWEL CASC #### [facility] , Bilirubin.indirect [Mass/Vol] 0.1 mg/dL Normal 0.0-0.4 [facility] Comment on above: Order Comment: Reaso n for Exam Diarrhea;GERD (gastroesophageal reflux disease);Elevated LFT Performed By: #### C BC, ESR, OB(GUAIAC), CMP, HEPATIC #### [facility] [address] [place] [address] #### CALPROTECT, ELASTASE STOOL, BOWEL CASC #### [facility] , Pancreatic Elastase, Stoolon 06-25-2020 Pancreatic Elastase, Stool 470 Normal >200 [facility] Comment on above: Order Comment: Reaso n for Exam Diarrhea;Fecal incontinence Result Comment: Resu lt Units: ug Elast./g Severe Pancreatic Insufficiency: <100 Moderate Pancreatic Insufficiency: 100 - 200 Normal: >200 Performed at: - [facility] [id number] Calculator Operator: Dennis Dooley MD, Phone: [phone] Performed By: #### C BC, ESR, OB(GUAIAC), CMP, HEPATIC #### [facility] [address] [place] [address] [place] #### CALPROTECT, ELASTASE STOOL, BOWEL CASC [...] result. Reference range = Negative PERFORMED BY: [place] [address] PATH[address] M.D. Normal [facility] Comment on above: Performed By: #### C BC, ESR, OB(GUAIAC), CMP, HEPATIC #### [facility] [address] [place] [address] #### CALPROTECT, ELASTASE STOOL, BOWEL CASC #### [facility] , CBCon 02-14-2019 Erythrocyte distribution width (RBC) [Ratio] 12.7 % Normal 11.8-14.4 [facility] Comment on above: Performed By: #### C BC #### [facility] [address] [place] [address] Calculator Operator: Len Grissom MD Hematocrit (Bld) [Volume fraction] 29.6 % Low 36.3-47.1 [facility] Comment on above: Performed By: #### C BC #### [facility] [address] [place] [address] Calculator Operator: Len Grissom MD Hemoglobin (Bld) [Mass/Vol] 9.6 g/dL Low 11.9-15.1 [facility] Comment on above: Performed By: #### C BC #### [facility] [address] [place] [address] Calculator Operator: Len Grissom MD MCH (RBC) [Entitic mass] 29.9 pg Normal 25.2-33.5 [facility] Comment on above: Performed By: #### C BC #### [facility] [address] [place] [address] Calculator Operator: Len Grissom MD MCHC (RBC) [Mass/Vol] 32.4 g/dL Normal 28.4-34.8 [facility] Comment on above: Performed By: #### C BC #### [facility] [address] [place], [facility] Calculator Operator: Len Grissom MD MCV (RBC) [Entitic vol] 92.2 fL Normal 82.6-102.9 [facility] Comment on above: Performed By: #### C BC #### [facility] [address] [place] [address] Calculator Operator: Len Grissom MD NRBC Automated 0.0 per 100 WBC Normal 0.0 [facility] Comment on above: Performed By: #### C BC #### [facility] [address] [place], [facility] Calculator Operator: Len Grissom MD Platelet mean volume (Bld) [Entitic vol] 9.9 fL Normal 8.1-13.5 [facility] Comment on above: Performed By: #### C BC #### [facility] [address] [place] [address] Calculator Operator: Len Grissom MD Platelets (Bld) [#/Vol] 181 10*3/uL Normal 138-453 [facility] Comment on above: Performed By: #### C BC #### [facility] [address] [place], [place] [address]483 Calculator Operator: Len Grissom MD RBC (Bld) [#/Vol] 3.21 10*6/uL Low 3.95-5.11 [facility] Comment on above: Performed By: #### C BC #### [facility] [address] [place] [address] Calculator Operator: Len Grissom MD WBC (Bld) [#/Vol] 10.6 10*3/uL Normal 3.5-11.3 [facility] Comment on above: Performed By: #### C BC #### [facility] [address] [place], [place] [address] Calculator Operator: Lne Grissom MD Surgical Pathologyon 019 Surgical Pathology (NOTE) [id number] [facility] CONSULTING PATHOLOGISTS [facility] ANATOMIC PATHOLOGY [address] [place] [id number] SURGICAL PATHOLOGY CONSULTATION Patient Name: TATIANA URIBE [facility] Rec: [id number] Path Number: [id number] Collected: 02/13/2019 Received: 02/14/2019 Reported: 02/17/2019 11:51 -- Diagnosis -- PLACENTA, CORD AND MEMBRANES, DELIVERY: - SINGLE UMBILICAL ARTERY. - FOCAL INTERVILLOUS THROMBUS. - MATURE THIRD TRIMESTER PLACENTA. - NEGATIVE FOR SIGNIFICANT ACUTE INFLAMMATION OR NEOPLASM. Nir Monahan M.D. Electronically Signed Out jet/02/17/2019 Clinical Information Operative Findings: PLACENTA Source of [...] capillaries: Not increased Other: Few microcalcifications Normal [facility] Comment on above: Performed By: #### P PPVS #### [address] [place], [place] [address] Calculator Operator: Gary Rivera MD CBC with Diffon 02-12-2019 Abs. Basophil <0.03 Normal 0.00-0.20 [facility] Comment on above: Performed By: #### C DP #### [facility] [address] [place] [id number] Calculator Operator: Len Grissom MD Abs.Imm.Granulocyte 0.10 k/uL Normal 0.00-0.30 [facility] Comment on above: Performed By: #### C DP #### [address] [place] [address] Calculator Operator: Len Grissom MD Abs.Neutrophil (Seg) 6.26 k/uL Normal 1.50-8.10 [facility] Comment on above: Performed By: #### C DP #### [facility] [address] [place], [place] [address] Calculator Operator: Len Grissom MD Basophils/100 WBC (Bld) 0 % Normal 0-2 [facility] Comment on above: Performed By: #### C DP #### [facility] [address] [place], [place] [address] Calculator Operator: Len Grissom MD Eosinophils (Bld) [#/Vol] 10*3/uL Normal 0.00-0.44 [facility] Comment on above: Performed By: #### C DP #### [facility] [address] [place], [place] 40[address] Calculator Operator: Len Grissom MD Eosinophils/100 WBC (Bld) 0 % Low 1-4 [facility] Comment on above: Performed By: #### C DP #### [facility] [address] [place] [facility] Calculator Operator: Len Grissom MD Erythrocyte distribution width (RBC) [Ratio] 12.8 % Normal 11.8-14.4 [facility] Comment on above: Performed By: #### C DP #### [facility] [address] [place] [facility] Calculator Operator: Len Grissom MD Hematocrit (Bld) [Volume fraction] 38.8 % Normal 36.3-47.1 [facility] Comment on above: Performed By: #### C DP #### [facility] [address] [place] [facility] Calculator Operator: Len Grissom MD Hemoglobin (Bld) [Mass/Vol] 12.5 g/dL Normal 11.9-15.1 [facility] Comment on above: Performed By: #### C DP #### [address] [place] [facility] Calculator Operator: Len Grissom MD Immature granulocytes (Bld) [#/Vol] 1 % High 0 [facility] Comment on above: Performed By: #### C DP #### [facility] [address] [place] [facility] Calculator Operator: Len Grissom MD Lymphocytes (Bld) [#/Vol] 1.18 10*3/uL Normal 1.10-3.70 [facility] Comment on above: Performed By: #### C DP #### [facility] [address] [place] [facility] Calculator Operator: Len Grissom MD Lymphocytes/100 WBC (Bld) 15 % Low 24-43 [facility] Comment on above: Performed By: #### C DP #### [facility] [address] [place], [place] [address]883 Calculator Operator: Len Grissom MD MCH (RBC) [Entitic mass] 29.6 pg Normal 25.2-33.5 [facility] Comment on above: Performed By: #### C DP #### [facility] [address] [place], [facility] Calculator Operator: Len Grissom MD MCHC (RBC) [Mass/Vol] 32.2 g/dL Normal 28.4-34.8 [facility] Comment on above: Performed By: #### C DP #### [facility] [address] [place], [facility] Calculator Operator: Len Grissom MD MCV (RBC) [Entitic vol] 91.9 fL Normal 82.6-102.9 [facility] Comment on above: Performed By: #### C DP #### [facility] [address] [place], [place] [address] Calculator Operator: Len Grissom MD Monocytes (Bld) [#/Vol] 0.56 10*3/uL Normal 0.10-1.20 [facility] Comment on above: Performed By: #### C DP #### [facility] [address] [place], [facility] Calculator Operator: Len Grissom MD Monocytes/100 WBC (Bld) 7 % Normal 3-12 [facility] Comment on above: Performed By: #### C DP #### [facility] [address] [place], [facility] Calculator Operator: Len Grissom MD Neutrophil (Seg) 77 % High 36-65 [facility] Comment on above: Performed By: #### C DP #### [facility] [address] [place], [place] [address] Calculator Operator: Len Grissom MD NRBC Automated 0.0 per 100 WBC Normal 0.0 [facility] Comment on above: Performed By: #### C DP #### [facility] [address] [place], [place] [address]483 Calculator Operator: Len Grissom MD Platelet mean volume (Bld) [Entitic vol] 10.1 fL Normal 8.1-13.5 [facility] Comment on above: Performed By: #### C DP #### [facility] [address] [place], [place] [address] Calculator Operator: Len Grissom MD Platelets (Bld) [#/Vol] 186 10*3/uL Normal 138-453 [facility] Comment on above: Performed By: #### C DP #### [facility] [address] [place], [place] [address] Calculator Operator: eLn Grissom MD RBC (Bld) [#/Vol] 4.22 10*6/uL Normal 3.95-5.11 [facility] Comment on above: Performed By: #### C DP #### [facility] [address] [place], [place] 7159883 Calculator Operator: Len Grissom MD WBC (Bld) [#/Vol] 8.1 10*3/uL Normal 3.5-11.3 [facility] Comment on above: Performed By: #### C DP #### [facility] [address] [place], [place] 2665783 Calculator Operator: Len Grissom MD Auto Diff Performed NOT REPORTED Normal [facility] Comment on above: Performed By: #### C DP #### [facility] [address] [place], [place] [address] Calculator Operator: Len Grissom MD Platelets (Bld) [#/Vol] NOT REPORTED Normal [facility] Comment on above: Performed By: #### C DP #### [facility] [address] [place] [address] Calculator Operator: Len Grissom MD RBC morphology finding Nom (Bld) NOT REPORTED Normal [facility] Comment on above: Performed By: #### C DP #### [facility] [address] [place], [place] [address] Calculator Operator: Len Grissom MD WBC Morphology NOT REPORTED Normal [facility] Comment on above: Performed By: #### C DP #### [facility] [address] [place], [facility] Calculator Operator: Len Grissom MD Drug Scr, Abuse, Uron 2018 Amphetamine(s),Ur Negative Normal NEG [facility] Comment on above: Performed By: #### D AU #### [facility] [address] [place], [facility] Calculator Operator: Len Grissom MD Barbiturate(s),Ur Negative Normal [facility] Comment on above: Performed By: #### D AU #### [facility] [address] [place], [place] [address] Calculator Operator: Len Grissom MD Base excess Calc (Bld) [Moles/Vol] Negative Normal NEG [facility] Comment on above: Performed By: #### D AU #### [facility] [address] [place], [facility] Calculator Operator: Len Grissom MD Benzodiazepine(s) Negative [facility] Comment on above: Performed By: #### D AU #### [facility] [address] [place], [place] 9350483 Calculator Operator: Len Grissom MD Buprenorphrine, Ur Negative Normal [facility] Comment on above: Performed By: #### D AU #### [facility] [address] [place], [place] [address] Calculator Operator: Len Grissom MD Cannabinoid(s),Ur Negative Normal NEG [facility] Comment on above: Performed By: #### D AU #### [facility] [address] [place], [place] 360[address]483 Calculator Operator: Len Grissom MD Methadone Ql (U) Negative Normal NEG [facility] Comment on above: Performed By: #### D AU #### [facility] [address] [place], [place] [address] Calculator Operator: Len Grissom MD Methamphetamine, Ur Negative Normal NEG [facility] Comment on above: Performed By: #### D AU #### [facility] [address] [place] [address] Dr[place], [place] 8328383 Calculator Operator: Len Grissom MD Opiate(s), Ur Negative Normal NEG [facility] Comment on above: Performed By: #### D AU #### [facility] [address] [place] [address] Dr. [place], [place] 8857283 Calculator Operator: Len Grissom MD Oxycodone, Urine Negative Normal [facility] Comment on above: Performed By: #### D AU #### [facility] [address] [place] [address] Dr[place], [place] 1227483 Calculator Operator: Len Grissom MD Phencyclidine, Ur Negative Normal [facility] Comment on above: Performed By: #### D AU #### [facility] [address] [place], [place] [address] Calculator Operator: Len Grissom MD Propoxyphene,Urine Negative Normal NEG [facility] Comment on above: Performed By: #### D AU #### [facility] [address] [place], [place] [address] Calculator Operator: Len Grissom MD Tricyclic antidepressants Screen Ql (U) Negative Normal [facility] Comment on above: Result Comment: Drug screen results are to be used for medical purposes only. All positive results are unconfirmed. Testing for employment or legal uses should be sent to a reference laboratory for confirmation. Performed By: #### D AU #### [facility] [address] [place], [place] [address]83 Calculator Operator: Len Grissom MD Interpretive Info NOT REPORTED Normal [facility] Comment on above: Performed By: #### D AU #### [facility] [address] [place], [place] 4976283 Calculator Operator: Len Grissom MD MDMA, Urine NOT REPORTED Normal NEG [facility] Comment on above: Performed By: #### D AU #### [facility] [address] [place], [place] [address]83 Calculator Operator: Len Grissom MD Type + Screenon 02-12-2019 Type + Screen Sample Expiration 02/15/2019,2359 Arm Band Number [id number] ABO/Rh(D) B POSITIVE Antibody Screen NEGATIVE Antibody Ident NOT REPORTED Normal [facility] Comment on above: Performed By: #### T YS #### [facility] [address] [place] [address] Calculator Operator: Len Grissom MD US PELVIS AND TRANSVAGon US PELVIS AND TRANSVAG [address] [place] [address] Patient: TATIANA URIBE Exam Date: 11/13/2017DOB: 1995 Gender:F : DR MELISSA HEWITTON Admission #: [id number] : Order #: [id number] HERE TO VIEW EXAM RADIOLOGY REPORT PROCEDURE: [...] Smith M.D. on 11/13/2017 at 15:49 Normal [facility] Encounters Encounter Date Encounter Type Care Provider Facility Start: 08-06-2023 ambulatory ADRIA L FLORO Not Jeanna ilable Start: 08-02-2023 End: 08-02-2023 ambulatory ADRIA L FLORO Not Available Start: 07-31-2023 End: 07-31-2023 ambulatory ADRIA L FLORO Not Available Start: 07-26-2023 End: 07-26-2023 ambulatory ADRIA L FLORO Not Available Start: 07-23-2023 End: 07-23-2023 ambulatory ADRIA L FLORO Not Available Start: 07-19-2023 End: 07-19-2023 ambulatory ADRIA L FLORO Not Available Start: 07-16-2023 End: 07-16-2023 ambulatory ADRIA L FLORO Not Available Start: 07-12-2023 End: 07-12-2023 ambulatory ADRIA L FLORO Not Available Start: 07-12-2023 End: 07-12-2023 ambulatory ROBERT Greg BENSON Not Available Start: 07-05-2023 End: 07-10-2023 ambulatory ADRIA L FLORO Not Available Start: 07-05-2023 End: 07-05-2023 ambulatory ADRIA L FLORO Not Available Start: 06-28-2023 End: 06-28-2023 ambulatory ADRIA L FLORO Not Available Start: 06-25-2023 End: 06-25-2023 ambulatory ADRIA L FLORO Not Available Start: 06-21-2023 End: 06-21-2023 ambulatory ADRIA L FLORO Not Available Start: 06-19-2023 End: 06-19-2023 ambulatory ADRIA L FLORO Not Available Start: 06-07-2023 End: 06-07-2023 ambulatory ADRIA L FLORO Not Available Start: 05-23-2023 End: 05-23-2023 ambulatory ADRIA L FLORO Not Available Start: 05-07-2023 End: 05-07-2023 ambulatory ADRIA L FLORO Not Available Start: 04-24-2023 End: 04-24-2023 ambulatory ADRIA L FLORO Not Available Start: 03-28-2023 End: 03-28-2023 ambulatory ADRIA L FLORO Not Available Start: 03-06-2023 End: 03-06-2023 ambulatory ADRIA L FLORO Not Available Start: 02-05-2023 End: 02-05-2023 ambulatory ADRIA L FLORO Not Available Start: 02-12-2019 End: 02-15-2019 Evaluation and management of inpatient ADRIATAB GUERRA [facility] Start: 11-13-2017 End: 11-14-2017 Patient encounter MELISSA STEVENS Facility:H1 Procedures Date Procedure Procedure Detail Performing Clinician Start: 02-15-2019 DISCHARGE PATIENT JOELLE GUERRA Start: 02-14-2019 Blood count complete automated ADRIA GUERRA Start: 02-14-2019 Level iv surg pathol ogy gross&microscopic exam ADRIA GUERRA Start: 02-14-2019 ADVANCE DIET BLANCAE RATED (NURSING COMMUNICATION) ADRIA ESPINALO Start: 02-14-2019 AMBULATE PATIENT JAYSHREE GUERRA Start: 02-14-2019 ASSESS ADRIA FL PAULO Start: 02-14-2019 DIET GENERAL ADRIA FL PAULO Start: 02-14-2019 FULL CODE ADRIA FL PAULO Start: 02-14-2019 ICE TO AFFECTED AREA DIAMANTE ESPINALO Start: 02-14-2019 NOTIFY PHYSICIAN (SPECIFY) ADRIA TEDDYO Start: 02-14-2019 REASON FOR NO CHEMIC AL VTE PROPHYLAXIS ADRIA TEDDYO Start: 02-14-2019 SALINE LOCK IV ADRIA TEDDYO Start: 02-14-2019 STRAIGHT CATH ADRIA F LORO Start: 02-14-2019 VITAL SIGNS ADRIA BATES Start: 02-14-2019 TRANSFER PATIENT JAYSHREE GUERRA Start: [...] ADRIA GUERRA Start: 01-24-2019 GBS, EXTERNAL RESULT [facility] KEITH GUERRA Payers Date Payer Category Payer Private Health Insurance [id number] 2022 Private Health Insurance [id number] 2019 Unknown [id number] 1995 Unknown [id number] 2.16.8 [id number] 1995 Unknown [id number] 2.16.84 0.1.722438.3.579.2.1258 1996 Unknown [id number] 2.16.84 0.1.565274.3.579.2.9 1996 Unknown [id number] 2.16.84 0.1.415135.3.579.2.9 1996 Unknown [id number] 2.16.84 0.1.793242.3.579.2.9 1996 Unknown [id number] 2.16.84 0.1.677810.3.579.2.1258 1996 Unknown [id number] 2.16.84 0.1.763973.3.579.2.9 1996 Unknown [id number] 2.16.84 0.1.359337.3.579.2.9 1996 Unknown [id number] 2.16.84 0.1.346957.3.579.2.9 1996 Unknown [id number] 2.16.84 0.1.330394.3.579.2.1258 1996 Unknown [id number] 2.16.84 0.1.683432.3.579.2.1258 1996 Unknown [id number] 2.16.84 0.1.366502.3.579.2.1258 1996 Unknown [id number] 2.16.84 0.1.103731.3.579.2.1258 1996 Unknown [id number] 2.16.84 0.1.417766.3.579.2.1258 1996 Unknown [id number] 2.16.84 0.1.230548.3.579.2.1258 1996 Unknown [id number] 2.16.84 0.1.547597.3.579.2.1258 1996 Unknown [id number] 2.16.84 0.1.475730.3.579.2.1258 1996 Unknown [id number] 2.16.84 0.1.771279.3.579.2.1258 1996 Unknown [id number] 2.16.84 0.1.771827.3.579.2.1258 1996 Unknown [id number] 2.16.84 0.1.374967.3.579.2.1258 1996 Unknown [id number] 2.16.84 0.1.536118.3.579.2.1258 1996 Unknown [id number] 2.16.84 0.1.097658.3.579.2.1258 1996 Unknown [id number] 2.16.84 0.1.821793.3.579.2.1258 1996 Unknown [id number] 2.16.84 0.1.934102.3.579.2.1258 1996 Unknown [id number] 2.16.840 .1.245153.3.579.2.1259 1996 Unknown [id number] 2.16.840 .1.275696.3.579.2.1259 1959 Unknown [id number] Summary Purpose Family History No Family History Records FoundNo Family History Records FoundNo Family History Records FoundNo Family History Records Found Advance Directives No Advanced Directives Records FoundNo Advanced Directives Records FoundNo Advanced Directives Records FoundNo Advanced Directives Records Found Additional Source Comments INFORMATION SOURCE (unrecogn ized section and content) DATE CREATED AUTHOR 12/19/2017 [facility] DATE CREATED AUTHOR AUTHOR'S ORGANIZ ATION 03/20/2019 [facility] DATE CREATED AUTHOR AUTHOR'S ORGANIZ ATION 04/27/2021 [facility] DATE CREATED AUTHOR AUTHOR'S ORGANIZ ATION 08/07/2023 [facility] EPIC FOR RECORDS PERTAINING TO PATIENTS [...] BE BASED ON THE PRIMARY CLINICAL RECORDS. [facility]. provides no warranty or guarantee of the accuracy or completeness of information in this document.
--- NOTE | 2023-08-08 18:52 | PC.NURSE ---
presents to fb c/o ctxs since 0500 today, states will need a csection as per MFM due to macrosomia, obtains ccua and into bed- states has ctxs irregularly every 5-20 minutes with some quite painful per pt, Thais MURILLOM in to check pt.
[2023-08-08 18:53] LABS: Bilirubin Urine NEGATIVE (NEGATIVE); Blood Urine LARGE (NEGATIVE); Clarity Urine CLEAR (CLEAR); Color Urine YELLOW (YELLOW); Glucose Urine UA NEGATIVE (NEGATIVE); Ketones Urine 40 mg/dL (NEGATIVE); Leukocyte Esterase Urine MODERATE (NEGATIVE); Nitrite Urine NEGATIVE (NEGATIVE); Protein Urine TRACE mg/dL (NEG/TRACE); Specific Gravity Urine >=1.030 (1.005-1.025)
[2023-08-08 18:54] LABS: Urine Microscopic Indicated YES
[2023-08-08 19:00] LABS: Bacteria Urine SMALL #/HPF (NONE SEEN); Cast Seen? NONE SEEN #/LPF (NONE SEEN); Crystals Seen? None Seen #/HPF (None Seen); Mucus Urine TRACE (NONE SEEN); RBC Urine 20-50 #/HPF (0-2); Squamous Epithelial Cell Urine MANY #/LPF (NONE/RARE); Urine Culture Indicated YES
[2023-08-08 19:36] LABS: Amphetamine Screen Urine NEGATIVE (NEGATIVE); Barbiturates Screen Urine NEGATIVE (NEGATIVE); Benzodiazepines Screen Urine NEGATIVE (NEGATIVE); Buprenorphine Screen Urine NEGATIVE (NEGATIVE); Cannabinoid Screen Urine NEGATIVE (NEGATIVE); Cocaine Screen Urine NEGATIVE (NEGATIVE); Methadone Screen Urine NEGATIVE (NEGATIVE); Methamphetamines Screen Urine NEGATIVE (NEGATIVE); Opiate Screen Urine NEGATIVE (NEGATIVE); Oxycodone Screen Urine NEGATIVE (NEGATIVE); Phencyclidine Screen Urine NEGATIVE (NEGATIVE); Tricyclic Antidepressant Urine NEGATIVE (NEGATIVE)
[2023-08-08 19:43] LABS: Basophils Percent Auto 0.2 % (0.2-2.0); Eosinophils Percent Auto 0.2 % (0.9-7.0); Hematocrit 34.2 % (36.0-48.0); Hemoglobin 11.2 g/dL (12.0-16.0); Immature Granulocytes Abs Auto 0.05 10^3/uL (0.00-0.03); Immature Granulocytes Pct Auto 0.8 % (0.0-0.5); Lymphocytes Absolute Auto 1.6 10^3/uL (1.2-3.8); Lymphocytes Percent Auto 23.6 % (20.5-60.0); Mean Corpuscular HGB Conc 32.7 g/dL (29.9-35.2); Mean Corpuscular Hemoglobin 28.6 pg (26.7-34.0); Mean Corpuscular Volume 87.2 fL (81.0-99.0); Mean Platelet Volume 10.4 fL (9.5-13.5); Monocytes Absolute Auto 0.5 10^3/uL (0.3-0.8); Neutrophils Absolute Auto 4.5 10^3/uL (1.4-6.5); Neutrophils Percent Auto 68.2 % (43.0-75.0); Platelet Count 158 10^3/uL (150-450); Red Blood Count 3.92 10^6/uL (4.20-5.40); Red Cell Distribution Width 13.9 % (11.0-15.0); White Blood Count 6.6 10^3/uL (4.0-11.0)
--- NOTE | 2023-08-08 19:43 | P.OBHP_ITS ---
OB - H&P: HPI History of Present Illness Chief complaint: Contractions : 2 Para: 1 Gestational age based on last menstrual period: 39.5 Comments: primary section for suspected macrosomia, history of benign intracranial hypertension, GDM History of Present Dating criteria: LMP confirmed by 1st trimester US care: good care Ultrasounds: normal 1st trimester US and normal mid trimester US complications: gestational diabetes and other complications comment: history of benign intracranial hypertension Labs Blood type: B (+) positive Rubella: immune RPR/VDLR: nonreactive GBS status: negative HBsAG: negative Review of Systems ROS Status of ROS: 10 or more systems reviewed and unremarkable except as noted in history and below [facility] Medical History (Updated 08/08/23 @ 19:52 by ADRIA GUERRA APRN, CNM) Intracranial hypertension ?G93.2 - Benign intracranial hypertension (ICD-10) Meds Home Medications and Allergies Allergies Allergy/AdvReac Type Severity Reaction Status Date / Time No Known Drug Allergies Allergy Verified 07/24/23 16:57 Exam Constitutional Vital Signs, click to edit/add: Last Vital Signs Pulse 107 H 08/08/23 18:40 BP 122/79 08/08/23 18:40 Documenting provider has reviewed patient's vital signs: yes Common normals: no apparent distress, average body habitus, oriented x3, no limitations, healthy appearing, alert and well nourished Orientation/consciousness: Yes awake, Yes oriented to person, Yes oriented to place and Yes oriented to time [place] Common normals: normocephalic, head/scalp atraumatic, hearing grossly normal bilaterally, external ears normal, EACs normal, TMs normal bilaterally, external nose normal, nasal mucous membranes and turbinates normal, moist oral mucous membranes, oropharynx normal, dentition normal and gingiva normal Eye Common normals: EOMs intact bilaterally Neck & C-Spine Common normals: full ROM, no lymphadenopathy, supple, no meningeal signs, no JVD, thyroid normal and no carotid bruits Lymph Lymphatic: no lymphadenopathy noted Chest Common normals: inspection of chest normal Respiratory Common normals: normal respiratory effort Effort & inspection: able to speak in complete sentences Auscultation: clear to auscultation bilaterally Cardio Common normals: regular rate and regular rhythm Rate: regular rate Rhythm: regular rhythm GI Common normals: Normal to inspection, nondistended, normoactive bowel sounds present and soft to palpation Common normals: no CVA tenderness Back & Pelvis Common normals: no CVA tenderness Extremity Common normals: normal to inspection and full ROM Neuro Common normals: oriented x3 Sensorium/orientation: awake, alert, oriented to person, oriented to place and oriented to time Psych Common normals: mental status grossly normal, thought process normal, cooperative and affect normal Attitude: calm Results Labs Labs: Urine 08/08/23 Range/Units 18:45 Urine Color Yellow (YELLOW) Urine Clarity Clear (CLEAR) Urine pH 6.0 (5.0-9.0) Ur Specific [place] >=1.030 A (1.005-1.025) Urine Protein Trace (NEG/TRACE) mg/dL Urine Glucose (UA) Negative (NEGATIVE) mg/dL OB - A/P Assessment and Plan (1) Term : Urinary Catheter Management Urinary Catheter Management Urethral: Cath placed during this visit: no Urethral indwelling: Yes Reason for continuing: prolonged immobilization
[2023-08-08] MEDS: FAMOTIDINE/PF 20 MG/2 ML VIAL IV (19:44)
[2023-08-08] MEDS: CITRIC ACID/SODIUM CITRATE 30 ML SOLUTION ORACIT SHOHL'S SOLN PO (19:45)
[2023-08-08] MEDS: METOCLOPRAMIDE HCL 10 MG/2 ML VIAL IVP (19:45)
[2023-08-08] MEDS: LACTATED RINGER'S SOLUTION 1,000 ML 1000 ML IV ×2 (19:49→20:17)
[2023-08-08] MEDS: CEFAZOLIN SODIUM/DEXTROSE,ISO 2 GM/50 ML PIGGYBACK IV (20:36)
--- NOTE | 2023-08-08 21:32 | PM.ONB ---
Brief Operative Note Date of procedure: 08/08/23 Pre-op diagnosis general: iup at 39wks, c/s per mfm dt macrosomia, gdm diet controlled Post-op diagnosis: same as pre-op Procedure: NAME OF PROCEDURE: [ section with bilateral salpingectomy ] PROCEDURE: Patient was taken back to the Operating Room where she was given a spinal anesthesia with Duramorph without difficulty. She was prepped and draped in the normal sterile fashion. A Pfannenstiel skin incision was then made 2?cm above the symphysis pubis and carried down to underlying rectus fascia using a Bovie. The fascia was incised in the midline and extended laterally using Gonzales scissors. Two Ericka clamps were placed on the superior aspect of the fascia and dissected off the underlying rectus muscles. The same was performed on the inferior aspect as well. The muscles were then in the midline. Peritoneum was identified and entered bluntly. The peritoneum was then extended superiorly and inferiorly with good visualization of the bladder. The bladder blade was inserted. Vesicouterine peritoneum was identified, tented up, and entered with Metzenbaum scissors. A bladder flap was then created digitally. The bladder blade was reinserted. A low transverse incision was made on the patient's uterus and extended laterally digitally. The was then delivered atraumatically after the bladder blade was removed in the cephalic position. The cord was clamped and cut. Cord blood was obtained. The infant was handed off to awaiting team. The patient's placenta was spontaneously delivered. The uterus was then exteriorized. The uterus was cleared of all clots and debris. The bladder blade was reinserted. The patient's uterine incision was closed using #0 Vicryl in a running lock fashion. Excellent hemostasis was assured.? The rt tube was identified and grasped with babock, the ligasure was used to transect and ligate the tube in its entirity, this was done on the contralateral side as well. The uterus was then returned to the patient's abdomen. The patient's abdomen was copiously irrigated using warm saline. Peritoneal gutters were cleared of all clots and debris. Again excellent hemostasis was assured. The patient's fascia was closed using #0 Vicryl in a running fashion. The patient's skin was closed using 4-0 Vicryl subcuticularly. The patient tolerated the procedure well. Sponge, lap, and needle counts were correct x2. The patient was taken to the Recovery Room in stable condition. Anesthesia: spinal Surgeon: Melvin Mendoza Locomotive Crane Operator: ADRIA GUERRA Estimated blood loss (mL): 575 Pathology: other (tubes) Condition: stable Disposition: floor Urinary Catheter Management Urinary Catheter Management Urethral: Cath placed during this visit: yes Urethral indwelling: Yes Reason for continuing: not indwelling catheter Insertion date: 08/08/23 Insertion time: 20:00
--- NOTE | 2023-08-08 21:34 | P.OBPRC_ITS ---
Procedure Pre-op/Post-op diagnoses: Pre-Op/Post-Op Diagnoses Operation Date: 08/08/23 19:45 <No data on this case meets the specified criteria> Procedure: Procedures Operation Date: 08/08/23 19:45 Actual Procedure Side Surgeon p with bilateral salpingectomy Bilateral Melvin Mendoza DO Industrial Paramedic: ADRIA GUERRA Estimated blood loss (mL): 575 Disposition: floor Anesthesia type: Spinal
--- NOTE | 2023-08-08 22:13 | P.EN_ITS ---
Event Note Event Note: Adult Daycare Coordinator Note: I first assisted Dr Mendoza with primary section. I assisted physician as directed. I independently closed the SQ layer with 3-0 vicryl, and then I independently closed wi the skin incision with 4-o vicryl without difficulty. Hemostasis noted at completion of the closure. patient enoch erated procedure well.
--- NOTE | 2023-08-08 22:30 | PC.NURSE ---
fUNDUS FIRMED UP WITH FUNDAL MASSAGE
[2023-08-08] MEDS: OXYTOCIN/0.9 % SODIUM CHLORIDE 20 UNITS/1,000 ML PLAST..BAG 125 UNIT IV (22:42)
[2023-08-09] VITALS (18 sets, daily range): BP systolic 103–132; BP diastolic 45–74; PULSE 70–112; TEMP 36.4–37.2; O2SAT 94–98
[2023-08-09] MEDS: CEFAZOLIN SODIUM/DEXTROSE,ISO 2 GM/50 ML PIGGYBACK IV (02:43)
[2023-08-09] MEDS: KETOROLAC TROMETHAMINE 30 MG/ML VIAL IVP ×3 (03:34→16:33)
[2023-08-09] MEDS: ACETAMINOPHEN 500 MG TABLET 1000 MG PO ×2 (05:38→15:00)
[2023-08-09 05:56] LABS: Basophils Percent Auto 0.1 % (0.2-2.0); Hematocrit 25.6 % (36.0-48.0); Hemoglobin 8.2 g/dL (12.0-16.0); Immature Granulocytes Abs Auto 0.05 10^3/uL (0.00-0.03); Immature Granulocytes Pct Auto 0.6 % (0.0-0.5); Lymphocytes Percent Auto 11.2 % (20.5-60.0); Mean Corpuscular Volume 87.4 fL (81.0-99.0); Mean Platelet Volume 10.8 fL (9.5-13.5); Monocytes Absolute Auto 0.5 10^3/uL (0.3-0.8); Monocytes Percent Auto 6.1 % (1.7-12.0); Neutrophils Absolute Auto 7.3 10^3/uL (1.4-6.5); Platelet Count 162 10^3/uL (150-450); Red Blood Count 2.93 10^6/uL (4.20-5.40); Red Cell Distribution Width 13.7 % (11.0-15.0); White Blood Count 8.9 10^3/uL (4.0-11.0)
[2023-08-09] MEDS: DOCUSATE SODIUM 100 MG CAPSULE PO ×2 (09:02→21:02)
[2023-08-09] MEDS: ENOXAPARIN SODIUM 40 MG/0.4 ML SYRINGE SUBQ (09:03)
--- NOTE | 2023-08-09 10:42 | PM.OBPN ---
OB - PN: Subj Subjective Patient comments: no complaints, pain well controlled, tolerating diet and flatus present [place] infant status: doing well [place] feeding status: exclusively Exam Narrative Exam Narrative: VOICING NO COMPLAINTS Constitutional Vital Signs, click to edit/add: Last Vital Signs Temp 97.5 F L 08/09/23 08:58 Pulse 70 08/09/23 08:58 Resp 12 08/09/23 08:58 BP 119/55 08/09/23 08:58 Pulse Ox 96 08/09/23 08:58 O2 Del Method Room Air 08/09/23 09:00 Documenting provider has reviewed patient's vital signs: yes Common normals: no apparent distress, oriented x3, no limitations, alert and well nourished HENMT Common normals: normocephalic and head/scalp atraumatic Eye Pupil: PERRL and accommodation reflex normal Neck & C-Spine Common normals: full ROM and supple Respiratory Common normals: normal respiratory effort Cardio Common normals: regular rate and regular rhythm GI Common normals: Normal to inspection, nondistended, normoactive bowel sounds present, soft to palpation and non-tender Common normals: no CVA tenderness Back & Pelvis Common normals: no thoracic nor lumbar tenderness Extremity Common normals: normal to inspection, full ROM and no calf tenderness Neuro Common normals: oriented x3, CN's II-XII intact bilaterally, moves all extremities, no focal motor deficits and no sensory deficits noted Psych Common normals: mental status grossly normal, cooperative, affect normal and speech normal Results Labs Labs: Short CBC 08/08/23 08/09/23 Range/Units 19:22 05:39 WBC 6.6 8.9 (4.0-11.0) 10^3/uL Hgb 11.2 L 8.2 L (12.0-16.0) g/dL Hct 34.2 L 25.6 L (36.0-48.0) % Plt Count 158 162 (150-450) 10^3/uL Urine 08/08/23 Range/Units 18:45 Urine Color Yellow (YELLOW) Urine Clarity Clear (CLEAR) Urine pH 6.0 (5.0-9.0) Ur Specific [place] >=1.030 A (1.005-1.025) Urine Protein Trace (NEG/TRACE) mg/dL Urine Glucose (UA) Negative (NEGATIVE) mg/dL Urinary Catheter Management Urinary Catheter Management Urethral: Cath placed during this visit: yes, but has since been removed by the nurse Urethral indwelling: Yes Insertion date: 08/08/23 Insertion time: 20:00 Removal date: 08/09/23 Removal time: 08:45 OB - PN: A/P Assessment and Plan (1) delivery delivered: Assessment and Plan: doing well, voicing no concerns, hemoglobin 8 plus but asymptomatic, will start iron Plan - day: 1 Plan: routine postop care Time Spent with Patient Time: Total time spent is greater than 50% in coordination of care (as documented) at patient's floor/unit and/or counseling patient: Total time spent with greater than 50% in coordination of care (as documented) at patient's floor/unit and/or counseling patient: less than 15 minutes
[2023-08-09] MEDS: IRON PS COMPLEX/B12/FOLIC ACID CAPSULE 1 CAP PO (12:19)
[2023-08-09] MEDS: IBUPROFEN 400 MG TABLET 800 MG PO (21:02)
[2023-08-10] MEDS: ACETAMINOPHEN 500 MG TABLET 1000 MG PO ×2 (03:30→14:53)
--- NOTE | 2023-08-10 08:04 | PM.OBPN ---
OB - PN: Subj Subjective Patient comments: no complaints and pain well controlled [place] status: doing well Exam Constitutional Vital Signs, click to edit/add: Last Vital Signs Temp 98.0 F 08/09/23 22:35 Pulse 92 H 08/09/23 22:35 Resp 16 08/09/23 22:35 BP 108/46 L 08/09/23 22:35 Pulse Ox 96 08/09/23 22:35 O2 Del Method Room Air 08/09/23 22:35 Documenting provider has reviewed patient's vital signs: yes Common normals: no apparent distress Respiratory Common normals: normal respiratory effort and clear to auscultation bilaterally Cardio Common normals: regular rate and regular rhythm GI Common normals: Normal to inspection, nondistended, normoactive bowel sounds present Extremity Common normals: no calf tenderness Urinary Catheter Management Urinary Catheter Management Urethral: Cath placed during this visit: yes, but has since been removed by the nurse Urethral indwelling: Yes Insertion date: 08/08/23 Insertion time: 20:00 Removal date: 08/09/23 Removal time: 08:45 OB - PN: A/P Assessment and Plan (1) delivery delivered: Plan - day: 2 Plan: routine postop care Time Spent with Patient Time: Total time spent is greater than 50% in coordination of care (as documented) at patient's floor/unit and/or counseling patient: Total time spent with greater than 50% in coordination of care (as documented) at patient's floor/unit and/or counseling patient: less than 15 minutes
[2023-08-10 09:06] VITALS: BP 117/67; PULSE 90; TEMP 36.8; O2SAT 98
[2023-08-10] MEDS: IRON PS COMPLEX/B12/FOLIC ACID CAPSULE 1 CAP PO (09:07)
[2023-08-10] MEDS: IBUPROFEN 400 MG TABLET 800 MG PO (09:07)
[2023-08-10] MEDS: ENOXAPARIN SODIUM 40 MG/0.4 ML SYRINGE SUBQ (09:07)
[2023-08-10] MEDS: DOCUSATE SODIUM 100 MG CAPSULE PO (09:08)
== END 2023-08-10 15:35 | disposition home or self-care (01) | DRG 785 ==
PROVIDERS: Obstetrics & Gynecology; Admitting Provider Midwife; Family Provider Obstetrics & Gynecology; PCP Family Medicine; Visit Provider Midwife
PROC: 10D00Z1 Extraction of Products of Conception, Low, Open Approach (ICD-10-PCS; CPT 59514; principal; 2023-08-08 19:45)
DX: O36.63X0 Maternal care for excessive fetal growth, third trimester, not applicable or unspecified (principal); O24.420 Gestational diabetes mellitus in childbirth, diet controlled; Z3A.39 39 weeks gestation of pregnancy; Z37.0 Single live birth; Z90.49 Acquired absence of other specified parts of digestive tract; Z86.69 Personal history of other diseases of the nervous system and sense organs
CPT/HCPCS: 36415; 51702; 80307; 81001; 85025; 86850; 86900; 86901; 87086; 88302; 88307; 94667; 94668; 96372; 96374; 96375; 96376; J1094